=== PATIENT | female | born 1940 | race Caucasian/White ===

== ENCOUNTER 2016-11-05 00:50 | Observation (INO) ==
[2016-11-05] MEDS ORDERED: *HR* HYDROcodone/Acet 5/325 mg TABLET PO ONE (01:53)
[2016-11-05 02:20] LABS: Basophils % 0.5 %; Eosinophils # 0.2 K/mcL (0.0-0.6); Eosinophils % 2.4 %; Hematocrit 37.4 % (35.3-44.9); Hemoglobin 12.4 g/dL (11.5-15.4); Immature Granulocytes % 0.4 % (0-4); Immature Platelets 2.4 % (1.1-6.1); Lymphocytes # 0.8 K/mcL (0.6-4.6); Lymphocytes % 9.4 %; Mean Corpuscular HGB Conc 33.2 g/dL (31.6-35.5); Mean Corpuscular Hemoglobin 31.6 pg (28.0-33.3); Mean Corpuscular Volume 95.2 fL (83.0-100.0); Mean Platelet Volume 9.2 fL (9.4-12.4); Monocytes # 0.7 K/mcL (0.0-1.3); Neutrophils # 6.6 K/mcL (1.6-8.9); Platelet Count 252 K/mcL (140-400); Red Blood Count 3.93 M/mcL (3.82-4.97); Red Cell Distribution Width 12.9 % (11.5-14.5); Segmented Neutrophils % 79.3 %
[2016-11-05 02:29] LABS: INR 4.9; Prothrombin Time 55.6 Seconds (9.4-12.1)
[2016-11-05 02:33] LABS: BUN/Creatinine Ratio 23 (6-26); Blood Urea Nitrogen 18 mg/dL (7-20); Calcium 9.5 mg/dL (8.6-10.8); Carbon Dioxide 27 mEq/L (19-29); Chloride 106 mEq/L (98-109); Glucose 100 mg/dL (70-99); Osmolality,Calculated 294 (280-300); Potassium 3.8 mEq/L (3.5-4.5); Sodium 141 mEq/L (136-145); eGFR For African Americans > 60 (> 60); eGFR For Non-African Americans > 60 (> 60)
--- NOTE | 2016-11-05 03:22 | Emergency Department Note ---
Disposition Clinical Impression: Pain in right leg, Intractable pain, Unable to ambulate Disposition: Admitted As Inpatient Condition: Good Time of Disposition: 04:53 General Adult HPI - General Chief complaint: ED Extremity Problem,Nontraumatic Stated complaint: R leg pain Time Seen by Provider: 11/05/16 01:32 Source: patient, EMS Limitations: no limitations Nursing Notes Reviewed: Yes Vital Signs Reviewed: Yes - History of Present Illness HPI Narrative: 76-year-old female presents to the ED via EMS with complained of right leg pain. She has had similar history in the past but denies severe. Like started burden approximately 2 weeks ago and has progressively worsen. Denies any recent fall or injury. It is to the point where now she cannot bear to stand or walk. She is unable to move around in the house. Describes it similar to a cramping sensation. Describes the pain from the right hip radiating down the right leg. She does take care of her at home who has cancer at this time. She denies any difficulty with urination, incontinence of bowel or bladder. She is not taken anything for pain at this time. She does have a history of lupus and was recently seen and evaluated by her primary care physician 2 days ago. Labs are drawn at that time and was told that her INR is elevated. She has a history of blood clots in the left leg. On evaluation patient's right leg appears to be slightly shortened but her right knee remains flex. There is some pain along the right hip. No lumbar pain. Sensation is equal bilaterally. Equal pulses bilaterally. Will check your electrolytes as well as her INR. Will reevaluate, disposition pending workup. Pain Scale: 10 - Related Data Home Medications Medication Instructions Recorded Confirmed Ascorbic Acid [Vitamin C] 500 mg PO DAILY 01/26/15 10/18/15 Calcium Carbonate [Tums] 500 mg PO DAILY 01/26/15 10/18/15 Docusate [Colace] 200 mg PO DAILY 01/26/15 10/18/15 Folic Acid 0.8 mg PO DAILY 01/26/15 10/18/15 Gabapentin [Neurontin] 600 tab PO TID 01/26/15 10/18/15 Vitamin B Complex [B Complex] 1 tab PO DAILY 01/26/15 10/18/15 Vitamin D3/Folic Acid [Ortho D 1 tab PO DAILY 01/26/15 10/18/15 3,775 Unit-1 mg Cap] Vitamin E (Dl,Tocopheryl Acet) 100 unit PO DAILY 01/26/15 10/18/15 [Vitamin E] Calcium Carbonate [Calcium] 600 mg PO DAILY 10/18/15 10/18/15 Duloxetine HCl [Cymbalta] 60 mg PO DAILY 10/18/15 10/18/15 Pantoprazole Sodium [Protonix] 40 mg PO DAILY 10/18/15 10/18/15 Potassium Chloride 30 meq PO DAILY 10/18/15 10/18/15 Trospium Chloride 20 mg PO HS 10/18/15 10/18/15 Previous Rx's Medication Instructions Recorded Coumadin 5 mg PO ONCE #0 10/19/15 Tramadol HCl [Ultram] 50 mg PO QID PRN #12 tab 04/25/16 HYDROcodone/Acet 5/325 mg [B[place] 1 tab PO Q6H PRN #15 tab 08/16/16 5-325 mg] Allergies Allergy/AdvReac Type Severity Reaction Status Date / Time acetaminophen Allergy Hives Verified 11/05/16 00:57 [From Darvocet-N] cefazolin [From Ancef] Allergy Hives Verified 11/05/16 00:57 codeine Allergy Hives Verified 11/05/16 00:57 Erythromycin Base Allergy Hives Verified 11/05/16 00:57 latex Allergy Rash Verified 11/05/16 00:57 Oxycodone [From Percocet] Allergy Hives Verified 11/05/16 00:57 Penicillins Allergy Hives Verified 11/05/16 00:57 Procaine Allergy Dizziness Verified 11/05/16 00:57 propoxyphene Allergy Hives Verified 11/05/16 00:57 [From Darvocet-N] Sulfa (Sulfonamide Allergy Hives Verified 11/05/16 00:57 Antibiotics) theophylline [From Emiliano-Dur] Allergy Hives Verified 11/05/16 00:57 caffeine AdvReac Hallucinati Verified 11/05/16 00:57 ng Hydromorphone [From Dilaudid] AdvReac Itching Verified 11/05/16 00:57 lactose AdvReac Abdominal Verified 11/05/16 00:57 Pain tramadol AdvReac Rash Verified 11/05/16 00:57 All systems ED: reviewed and negative except as stated. Review of Systems: As Per HPI Constitutional: Denies: fever, chills Cardiovascular: Denies: chest pain Respiratory: Denies: cough, dyspnea Gastrointestinal: Denies: abdominal pain, nausea, vomiting Genitourinary: Denies: urgency, dysuria Musculoskeletal: Reports: back pain, arthralgia, myalgia. Denies: neck pain Integumentary: Denies: rash, abrasion Neurological: Denies: headache Past Medical History - Past Medical History Attestation: Yes The following information was validated with the patient. Source: patient Medical history: Reports: arthritis, cancer, COPD, CVA, DVT, fibromyalgia, osteoporosis, thyroid disease, other Surgical history: Reports: non-contributory, hysterectomy Psychiatric history: Reports: anxiety, depression [employer] history: Reports: non-contributory - Social History Smoking Status: Never smoker Smokeless Tobacco Status: No Alcohol use: Reports: none Drug use: Reports: none Physical Exam - General Limitations: no limitations General appearance: alert, in distress (Appears uncomfortable) - Head Head exam: atraumatic, normocephalic, normal inspection - Eye Eye exam: Present: normal appearance, PERRL, EOMI - ENT ENT exam: normal exam, normal oropharynx - Neck Neck exam: Present: normal inspection - Chest Chest inspection: Present: normal inspection, symmetric chest wall rise - Respiratory Respiratory exam: Present: normal lung sounds bilaterally. Absent: respiratory distress, wheezes, stridor - Cardiovascular Cardiovascular exam: Present: regular rate, normal rhythm, normal heart sounds - Abdominal Exam Abdominal exam: Present: soft, Non-Tender, normal bowel sounds. Absent: tenderness, distention, guarding, rebound, rigidity - Expanded Lower Extremity Exam Hip/Pelvis exam: Present: normal inspection, full ROM, tenderness, internal rotation, shortening, pelvis stable. Absent: swelling, ecchymosis, deformity Upper leg exam: Present: normal inspection, full ROM, tenderness. Absent: swelling, ecchymosis, deformity Knee exam: Present: normal inspection, full ROM, tenderness, knee extension intact. Absent: swelling, ecchymosis, deformity Lower leg exam: Present: normal inspection, full ROM Ankle exam: Present: normal inspection, full ROM Foot/toe exam: Present: normal inspection, full ROM Neurovascular/Tendon exam: Present: normal capillary refill, normal fine/light touch. Absent: pulse deficit, motor deficit, sensory deficit, tendon deficit, extremity cold to touch, foot drop Gait: unable to bear weight - Back Exam Back exam: Present: normal inspection, full ROM, sciatic notch tenderness (R). Absent: tenderness - Neurological Exam Neurological exam: Present: alert, oriented X3 - Skin Skin exam: Present: warm, dry, intact, normal color Course - Reevaluation(s) Reevaluation #1: Patient is describing sciatic leg pain. Denies any red flags or recent injury. On my evaluation her right leg seemed slightly shortened, certain for possible fracture of the head. She denies any recent injury or trauma. X-ray was normal. Brooten for pain with minimal relief. States she typically gets Dilaudid however has this listed as a allergy, typically will also get Benadryl prior to it. Patient refuses to ambulate and is unable to stand. She will likely need admission for pain control. Patients in agreement with this plan. Impression is intractable pain likely from sciatica. - Consultations Consultation #1: Spoke with on-call hospitalist courtney Mijares to admit for intractable pain likely sciatica. May require MRI but not emergently. No further orders at this time Vital Signs Temperature 97.7 F 11/05/16 00:57 Pulse Rate 78 11/05/16 00:57 Respiratory Rate 20 11/05/16 00:57 Blood Pressure 154/82 11/05/16 00:57 O2 Sat by Pulse Oximetry 96 11/05/16 00:57 Temperature 97.7 F 11/05/16 00:57 Pulse Rate 79 11/05/16 04:08 Respiratory Rate 18 11/05/16 04:08 Blood Pressure 144/75 11/05/16 04:08 O2 Sat by Pulse Oximetry 96 11/05/16 04:08 Oxygen Delivery Oxygen Delivery Room Air Medical Decision Making - Medical Records Medical records reviewed: Yes I reviewed the patient's medical records. - Lab Data Lab results reviewed: Yes I reviewed the patient's lab results. Result diagrams: 11/05/16 02:14 11/05/16 02:14 Lab Results 11/05/16 11/05/16 11/05/16 Range/Units 02:14 02:14 02:14 WBC 8.3 (4.3-11.1) K/mcL RBC 3.93 (3.82-4.97) M/mcL Hgb 12.4 (11.5-15.4) g/dL Hct 37.4 (35.3-44.9) % MCV 95.2 (83.0-100.0) fL MCH 31.6 (28.0-33.3) pg MCHC 33.2 (31.6-35.5) g/dL RDW 12.9 (11.5-14.5) % Plt Count 252 (140-400) K/mcL MPV 9.2 L (9.4-12.4) fL Immature Gran % 0.4 (0-4) % Seg Neutrophils % 79.3 % Lymphocytes % 9.4 % Monocytes % 8.0 % Eosinophils % 2.4 % Basophils % 0.5 % Neutrophils # 6.6 (1.6-8.9) K/mcL Lymphocytes # 0.8 (0.6-4.6) K/mcL Monocytes # 0.7 (0.0-1.3) K/mcL Eosinophils # 0.2 (0.0-0.6) K/mcL Basophils # 0.0 (0.0-0.2) K/mcL Immature Plt Fraction 2.4 (1.1-6.1) % PT 55.6 H* (9.4-12.1) Seconds INR 4.9 H* Sodium 141 (136-145) mEq/L Potassium 3.8 (3.5-4.5) mEq/L Chloride 106 (98-109) mEq/L Carbon Dioxide 27 (19-29) mEq/L BUN 18 (7-20) mg/dL Creatinine 0.79 (0.57-1.11) mg/dL Est GFR ( Amer) > 60 (> 60) Est GFR (Non-Af Amer) > 60 (> 60) BUN/Creatinine Ratio 23 (6-26) Glucose 100 H (70-99) mg/dL Calculated Osmolality 294 (280-300) Calcium 9.5 (8.6-10.8) mg/dL - Radiology Data Radiology results reviewed: Yes I reviewed the patient's radiology results. Pelvis X-Ray 11/05/16 01:42 IMPRESSION: No definite fracture. D/ / Jhonathan Beverly MD / Jhonathan Beverly MD Interpreting Provider: Jhonathan Beverly MD Attestation Statement - Attestation Attestation: I, Vernon Cho MD, personally evaluated this patient and discussed their management with the resident physician. I reviewed the resident's note and agree with the documented findings, medical decision making, and plan of care. 76-year-old female presents to the emergency department with a complaint of severe right leg pain. She has had similar problems intermittently in the past but not as severe. She denies any fall or injury. She states that the leg started hurting about 2 weeks ago and has gotten progressively worse. Over the past one day patient states the pain has gotten to the point that she is unable to stand or bear weight or walk. She is unable to get around her home. She lives at home with her and takes care of her who has cancer. No difficulty with urination or bowel movements. No numbness or tingling. She does complains of severe pain from the right SI joint area and the posterior right hip radiating down the right leg. On examination patient is a well-developed well-nourished elderly female in no acute distress but does appear to be in severe discomfort. She is alert and oriented 3. There is no cyanosis or diaphoresis. Breath sounds are clear and equal bilaterally. Heart regular. Abdomen soft and nontender with normal bowel sounds. There is tenderness to palpation over the right lower lumbar and sacroiliac region. Patient has severe pain in the right leg with any movement of the leg. Sensation is intact distally. She is able to dorsiflex and plantarflex the toes and foot. Labs reviewed. Pelvis x-ray shows no fracture. Patient was unable to stand or ambulate in the emergency department. The hospitalist, Dr. Verma, was consulted and accepted admission of the patient.
[2016-11-05] MEDS ORDERED: *HR* HYDROmorphone (PF) 1 MG/ML SYRINGE IVP ONE (04:44)
--- NOTE | 2016-11-05 08:37 | Internal Med History&Physical ---
Date of Encounter: 11/06/16 Time of Encounter: 08:34 Assessment and Plan (1) Intractable pain Current visit: Yes Status: Acute c/o right hip pain radiating down to the right leg, unable to lift right leg. no pain in the left leg, h/o spine surgery in the past denies fall or trauma. reports had some tingling before but no more, sensation is intact. received IV dilaudid at ED> unclear cause, given h/o spine surgery and severe pain, will order MRI to evaluate further. pelvic x ray with no fractures possible lumbosacral radiculopathy, however not much sensory symptoms will continue IV and oral pain meds as needed. physical therapy. DVT prophylaxis. (2) H/O: CVA (cerebrovascular accident) Current visit: Yes Status: Chronic no residual weakness. continue asa. (3) DVT (deep venous thrombosis) Current visit: No Status: Chronic reports recurrent clots in the past and also has h/o ?lupus for which she sees DR. Cortes INR supratheraeutic, hold today, may need to start at a lower dose. Qualifiers: DVT location: lower extremity Affected thrombotic vein of extremity: unspecified vein of extremity Chronicity: chronic Laterality: left Qualified Code(s): I82.502 - Chronic embolism and thrombosis of unspecified deep veins of left lower extremity Internal Medicine - H&P: HPI Chief complaint: right hip and leg pain Admitted From: Home Plans for Post Hospital Care: Home History of present illness: Ms. Kimball is a 76 year old female with past medical history of CVA, COPD, fibromyalgia, recurrent DVT status post back surgery presented with 2 day history of severe right-sided hip pain. She reports that she has been having this pain for a while but for the last 2 weeks has progressively worsen. Denies any recent fall or injury. It is to the point where now she cannot bear to stand or walk. She is unable to move around in the house. Describes the pain from the right hip radiating down the right leg. She does take care of her at home who has cancer at this time. She denies any difficulty with urination, incontinence of bowel or bladder. She is not taken anything for pain at this time. She does have a history of lupus and was recently seen and evaluated by her primary care physician. She has a history of blood clots x4 and is on life long coumadin, her INR noted to be elevated at 4.9, no bleeding complains. Past Med Surg Social Fam HX - Past Medical History Medical history: arthritis, cancer, COPD, CVA, DVT, fibromyalgia, osteoporosis, thyroid disease, other Psychiatric history: anxiety, depression - Past Surgical History Surgical History: non-contributory, hysterectomy - Social History Smoking Status: Never smoker Smokeless Tobacco Status: No Alcohol use: none Drug use: none - Family History Father Living Status: Hx Family Cancer: Yes (prostate) Mother Family Member Ethnicity: Non- Living Status: Hx Family Cardiac Disorders: Yes Hx Family Respiratory Disorders: Yes Hx Family Cancer: Yes (rectal) Hx Family GI Disorders: No Hx Family Endocrine Disorder: No Hx Family Neuromuscular Disorders: No Hx Family Neurologic Disorders: No Hx Family HEENT Disorders: No Hx Family Autoimmune Disorders: No Brother Hx Family Cardiac Disorders: Yes (ND, Heart stents) Hx Family Respiratory Disorders: No Hx Family Cancer: Yes (colon) Hx Family GI Disorders: No Hx Family Endocrine Disorder: No Hx Family Neuromuscular Disorders: No Hx Family Neurologic Disorders: No Hx Family HEENT Disorders: No Hx Family Autoimmune Disorders: No Internal Medicine - H&P: Meds Ascorbic Acid [Vitamin C] 500 mg PO DAILY 01/26/15 [History] Calcium Carbonate [Tums] 500 mg PO DAILY 01/26/15 [History] Docusate [Colace] 200 mg PO DAILY 01/26/15 [History] Folic Acid 0.8 mg PO DAILY 01/26/15 [History] Gabapentin [Neurontin] 600 tab PO TID 01/26/15 [History] Vitamin B Complex [B Complex] 1 tab PO DAILY 01/26/15 [History] Vitamin D3/Folic Acid [Ortho D 3,775 Unit-1 mg Cap] 1 tab PO DAILY 01/26/15 [ History] Vitamin E (Dl,Tocopheryl Acet) [Vitamin E] 100 unit PO DAILY 01/26/15 [History] Calcium Carbonate [Calcium] 600 mg PO DAILY 10/18/15 [History] Duloxetine HCl [Cymbalta] 60 mg PO DAILY 10/18/15 [History] Pantoprazole Sodium [Protonix] 40 mg PO DAILY 10/18/15 [History] Potassium Chloride 30 meq PO DAILY 10/18/15 [History] Trospium Chloride 20 mg PO HS 10/18/15 [History] Tramadol HCl [Ultram] 50 mg PO QID PRN #12 tab 04/25/16 [Rx] HYDROcodone/Acet 5/325 mg [[place] 5-325 mg] 1 tab PO Q6H PRN #15 tab 08/16/16 [Rx ] Metoprolol [Lopressor] 25 mg PO BID 11/05/16 [History] Nystatin POWDER [Nystop] 1 appl TP BID 11/05/16 [History] Warfarin [Coumadin] 5 mg PO AD 11/05/16 [History] hydrOXYzine HCl [Hydroxyzine HCl] 25 mg PO BID 11/05/16 [History] Allergies acetaminophen [From Darvocet-N] Allergy (Verified 11/05/16 00:57) Hives cefazolin [From Ancef] Allergy (Verified 11/05/16 00:57) Hives codeine Allergy (Verified 11/05/16 00:57) Hives Erythromycin Base Allergy (Verified 11/05/16 00:57) Hives latex Allergy (Verified 11/05/16 00:57) Rash Oxycodone [From Percocet] Allergy (Verified 11/05/16 00:57) Hives Penicillins Allergy (Verified 11/05/16 00:57) Hives Procaine Allergy (Verified 11/05/16 00:57) Dizziness propoxyphene [From Darvocet-N] Allergy (Verified 11/05/16 00:57) Hives Sulfa (Sulfonamide Antibiotics) Allergy (Verified 11/05/16 00:57) Hives theophylline [From Emiliano-Dur] Allergy (Verified 11/05/16 00:57) Hives caffeine Adverse Reaction (Verified 11/05/16 00:57) Hallucinating Hydromorphone [From Dilaudid] Adverse Reaction (Verified 11/05/16 00:57) Itching lactose Adverse Reaction (Verified 11/05/16 00:57) Abdominal Pain tramadol Adverse Reaction (Verified 11/05/16 00:57) Rash All Systems PM: A 10-system review of systems was performed and is negative for pertinent findings except as documented above in the HPI. - Constitutional Constitutional: as per HPI - EENT Eyes: as per HPI Ears: as per HPI Nose, mouth and throat: as per HPI - Breasts Breasts: as per HPI - Cardiovascular Cardiovascular ROS IM: as per HPI - Respiratory Respiratory: as per HPI - Gastrointestinal Gastrointestinal: as per HPI - Genitourinary Genitourinary: as per HPI Menstruation: as per HPI - Musculoskeletal Musculoskeletal ROS IM: as per HPI, limited range of motion - Integumentary Integumentary IM: as per HPI - Constitutional Vitals: Temp Pulse Resp BP Pulse Ox 97.5 F L 71 17 118/70 93 11/05/16 07:11 11/05/16 07:11 11/05/16 07:11 11/05/16 07:11 11/05/16 07:11 General appearance: Present: mild distress, A&O X 3 Exam: neck- supple hchest- b/l clear, no added sounds CVS-s1 and s2, no m/r/g abd-soft, non tender, bs are present. ext- tender right hip and thigh, unable to lift her rt. ext, sensation intact. Internal Med - H&P Results - Labs CBC & Chem 7: 11/06/16 04:06 11/06/16 04:06
[2016-11-05] MEDS ORDERED: Naloxone 0.4 MG/ML INJ IVP PRN (08:53)
[2016-11-05] MEDS: Folic Acid 1 MG TABLET PO SCH (09:29)
[2016-11-05] MEDS: Ascorbic Acid 500 MG TABLET PO SCH (09:29)
[2016-11-05] MEDS: Gabapentin 300 MG CAPSULE PO SCH ×3 (09:29→20:46)
[2016-11-05] MEDS: *HR* OxyCODONE Immed Rel 5 MG TABLET PO PRN ×2 (09:30→17:29)
[2016-11-05] MEDS: *HR* HYDROmorphone (PF) 1 MG/ML SYRINGE IVP PRN (11:01)
[2016-11-05] MEDS ORDERED: Warfarin perPT PO PRN (18:00)
[2016-11-06] MEDS: *HR* HYDROmorphone (PF) 1 MG/ML SYRINGE IVP PRN ×3 (04:11→23:29)
[2016-11-06 04:28] LABS: BUN/Creatinine Ratio 16 (6-26); Blood Urea Nitrogen 12 mg/dL (7-20); Calcium 8.5 mg/dL (8.6-10.8); Carbon Dioxide 29 mEq/L (19-29); Chloride 104 mEq/L (98-109); Glucose 95 mg/dL (70-99); INR 4.7; Osmolality,Calculated 286 (280-300); Prothrombin Time 53.4 Seconds (9.4-12.1); Sodium 138 mEq/L (136-145); eGFR For African Americans > 60 (> 60); eGFR For Non-African Americans > 60 (> 60)
[2016-11-06 04:48] LABS: Basophils % 0.4 %; Eosinophils # 0.2 K/mcL (0.0-0.6); Eosinophils % 3.1 %; Hematocrit 34.8 % (35.3-44.9); Hemoglobin 11.4 g/dL (11.5-15.4); Immature Granulocytes % 0.4 % (0-4); Lymphocytes % 19.8 %; Mean Corpuscular HGB Conc 32.8 g/dL (31.6-35.5); Mean Corpuscular Hemoglobin 31.1 pg (28.0-33.3); Mean Corpuscular Volume 94.8 fL (83.0-100.0); Mean Platelet Volume 9.7 fL (9.4-12.4); Monocytes # 0.5 K/mcL (0.0-1.3); Monocytes % 8.9 %; Neutrophils # 3.5 K/mcL (1.6-8.9); Platelet Count 223 K/mcL (140-400); Red Blood Count 3.67 M/mcL (3.82-4.97); Red Cell Distribution Width 13.1 % (11.5-14.5); Segmented Neutrophils % 67.4 %
[2016-11-06] MEDS: Folic Acid 1 MG TABLET PO SCH (07:23)
[2016-11-06] MEDS: Ascorbic Acid 500 MG TABLET PO SCH (07:24)
[2016-11-06] MEDS: Gabapentin 300 MG CAPSULE PO SCH ×3 (07:24→20:24)
[2016-11-06] MEDS: *HR* OxyCODONE Immed Rel 5 MG TABLET PO PRN ×2 (11:50→20:24)
--- NOTE | 2016-11-06 12:31 | Orthopedic Consult Note ---
Date of Encounter: 11/07/16 Time of Encounter: 12:29 Assessment and Plan (1) Pain in right leg Current Visit: Yes Status: Acute Right Hip XRAY IMPRESSION: No definite fracture. MR/MR hip RT wo con IMPRESSION: 1. Severe right hip osteoarthritis with synovitis. 2. No acute fracture. No acute abnormality in the right hip or pelvis. History of lumbar back surgery (2) Arthritis pain, hip Current Visit: Yes Status: Acute Right Hip XRAY IMPRESSION: No definite fracture. MR/MR hip RT wo con IMPRESSION: 1. Severe right hip osteoarthritis with synovitis. 2. No acute fracture. No acute abnormality in the right hip or pelvis. History of lumbar back surgery 2010. Overall, states her Right hip pain started approximately 2-3 months ago, she has seen PCP for this. Pain has recently worsened over the last two weeks, progressing worsening. She's having difficulty with ambulation currently. Patient was able to participate in PT. She would benefit from a Right THR, we discussed following up in outpatient clinic to set this up. We will start Tylenol and dose steroids for symptomatic control. Because of her history of DVT - will get doppler to r/o blood clot. Unable to take NSAIDS secondary to anti-coagulation. She has no contributing back pain or obvious weakness. No loss of bowel function or urinary function. Will plan to f/up outpatient in clinic to discuss elective THR versus hip injection. History of Present Illness Chief complaint: Right Hip pain HPI: Ms. Kimball is a 76 year old female with past medical history of CVA, COPD, fibromyalgia, recurrent DVT status post back surgery presented with 2 day history of severe right-sided hip pain. She reports that she has been having this pain for a while but for the last 2 weeks has progressively worsen. She admits to a fall approx 2-3 months ago and has seen her PCP since then. She has difficulty with ambulation. She is unable to move around in the house. Describes the pain from the right hip radiating down the right leg. Worsened with movement. Previous back surgery in 2010 - no complications or re-injuries to date. She denies N/T into leg. She does admit to intermittent sharp pain along groin and inner thigh. Sensation intact. She does take care of her at home who has cancer at this time. She denies any difficulty with urination, incontinence of bowel or bladder. She is not taken anything for pain at this time. Unable to take NSAIDS secondary to anticoagulation. She does have a history of lupus and was recently seen and evaluated by her primary care physician. She has a history of blood clots x4 and is on life long coumadin, her INR noted to be elevated at 4.9, no bleeding complains. Past Med Surg Social Fam HX - Past Medical History Medical history: arthritis, cancer, COPD, CVA, DVT, fibromyalgia, osteoporosis, thyroid disease, other Psychiatric history: anxiety, depression - Past Surgical History Surgical History: non-contributory, hysterectomy - Social History Smoking Status: Never smoker Smokeless Tobacco Status: No Alcohol use: none Drug use: none - Family History Father Living Status: Hx Family Cancer: Yes (prostate) Mother Family Member Ethnicity: Non- Living Status: Hx Family Cardiac Disorders: Yes Hx Family Respiratory Disorders: Yes Hx Family Cancer: Yes (rectal) Hx Family GI Disorders: No Hx Family Endocrine Disorder: No Hx Family Neuromuscular Disorders: No Hx Family Neurologic Disorders: No Hx Family HEENT Disorders: No Hx Family Autoimmune Disorders: No Brother Hx Family Cardiac Disorders: Yes ([place], Heart stents) Hx Family Respiratory Disorders: No Hx Family Cancer: Yes (colon) Hx Family GI Disorders: No Hx Family Endocrine Disorder: No Hx Family Neuromuscular Disorders: No Hx Family Neurologic Disorders: No Hx Family HEENT Disorders: No Hx Family Autoimmune Disorders: No Medications and Allergies Ascorbic Acid [Vitamin C] 500 mg PO DAILY 01/26/15 [History] Calcium Carbonate [Tums] 500 mg PO DAILY 01/26/15 [History] Docusate [Colace] 200 mg PO DAILY 01/26/15 [History] Folic Acid 0.8 mg PO DAILY 01/26/15 [History] Gabapentin [Neurontin] 600 tab PO TID 01/26/15 [History] Vitamin B Complex [B Complex] 1 tab PO DAILY 01/26/15 [History] Vitamin D3/Folic Acid [Ortho D 3,775 Unit-1 mg Cap] 1 tab PO DAILY 01/26/15 [ History] Vitamin E (Dl,Tocopheryl Acet) [Vitamin E] 100 unit PO DAILY 01/26/15 [History] Calcium Carbonate [Calcium] 600 mg PO DAILY 10/18/15 [History] Duloxetine HCl [Cymbalta] 60 mg PO DAILY 10/18/15 [History] Pantoprazole Sodium [Protonix] 40 mg PO DAILY 10/18/15 [History] Potassium Chloride 30 meq PO DAILY 10/18/15 [History] Trospium Chloride 20 mg PO HS 10/18/15 [History] Tramadol HCl [Ultram] 50 mg PO QID PRN #12 tab 04/25/16 [Rx] HYDROcodone/Acet 5/325 mg [[place] 5-325 mg] 1 tab PO Q6H PRN #15 tab 08/16/16 [Rx ] Metoprolol [Lopressor] 25 mg PO BID 11/05/16 [History] Nystatin POWDER [Nystop] 1 appl TP BID 11/05/16 [History] Warfarin [Coumadin] 5 mg PO AD 11/05/16 [History] hydrOXYzine HCl [Hydroxyzine HCl] 25 mg PO BID 11/05/16 [History] Allergies acetaminophen [From Darvocet-N] Allergy (Verified 11/05/16 00:57) Hives cefazolin [From Ancef] Allergy (Verified 11/05/16 00:57) Hives codeine Allergy (Verified 11/05/16 00:57) Hives Erythromycin Base Allergy (Verified 11/05/16 00:57) Hives latex Allergy (Verified 11/05/16 00:57) Rash Oxycodone [From Percocet] Allergy (Verified 11/05/16 00:57) Hives Penicillins Allergy (Verified 11/05/16 00:57) Hives Procaine Allergy (Verified 11/05/16 00:57) Dizziness propoxyphene [From Darvocet-N] Allergy (Verified 11/05/16 00:57) Hives Sulfa (Sulfonamide Antibiotics) Allergy (Verified 11/05/16 00:57) Hives theophylline [From Emiliano-Dur] Allergy (Verified 11/05/16 00:57) Hives caffeine Adverse Reaction (Verified 11/05/16 00:57) Hallucinating Hydromorphone [From Dilaudid] Adverse Reaction (Verified 11/05/16 00:57) Itching lactose Adverse Reaction (Verified 11/05/16 00:57) Abdominal Pain tramadol Adverse Reaction (Verified 11/05/16 00:57) Rash All Systems Reviewed: A 10-system review of systems was performed and is negative for pertinent findings except as documented above in the HPI. - Constitutional Constitutional: as per HPI - Cardiovascular Cardiovascular: as per HPI - Respiratory Respiratory: as per HPI Physical Exam - Constitutional Vitals: Temp Pulse Resp BP Pulse Ox 98.1 F 102 17 146/74 96 11/06/16 11:56 11/06/16 11:56 11/06/16 11:56 11/06/16 11:56 11/06/16 11:56 - Hip right Gait: antalgic Tenderness with palpation: anterior, lateral, greater trochanter ROM: extension: abnormal ROM: flexion: abnormal ROM: abduction: abnormal ROM: adduction: abnormal ROM: internal rotation: abnormal ROM: external rotation: abnormal Crepitus with motion: No Strength: extension: Normal Strength: flexion: Normal Results - Labs Result Diagrams: 11/07/16 04:00 11/07/16 04:00 Labs: Abnormal lab results RBC 3.67 M/mcL (3.82-4.97) L 11/06/16 04:06 Hgb 11.4 g/dL (11.5-15.4) L 11/06/16 04:06 Hct 34.8 % (35.3-44.9) L 11/06/16 04:06 PT 53.4 Seconds (9.4-12.1) H* 11/06/16 04:06 INR 4.7 H* 11/06/16 04:06 Calcium 8.5 mg/dL (8.6-10.8) L 11/06/16 04:06 H & H 11/06/16 Range/Units 04:06 Hgb 11.4 L (11.5-15.4) g/dL Hct 34.8 L (35.3-44.9) % All other labs normal. - Diagnostic results Hip x-ray: report reviewed, image reviewed Consult Discharge Plan - Plan Referrals: Mary Ortiz CNP [Primary Care Provider] -
--- NOTE | 2016-11-06 15:18 | Internal Med Progress Note ---
Date of Encounter: 11/06/16 Time of Encounter: 10:15 - Assessment and plan (1) Intractable pain Current Visit: Yes Status: Acute Assessment and plan: Intractable pain in the right hip region. No acute fracture. Pain control with IV narcotic medications as needed. Moderate risk for complications. (2) Osteoarthritis of right hip Current Visit: Yes Status: Chronic Assessment and plan: Patient with severe osteoarthritis of the right hip per MRI along with synovitis. We will consult orthopedics for recommendations Qualifiers: Osteoarthritis type: unspecified Qualified Code(s): M16.11 - Unilateral primary osteoarthritis, right hip (3) DVT (deep venous thrombosis) Current Visit: No Status: Chronic Assessment and plan: He should not with history of deep vein thrombosis on lifelong anticoagulation with Coumadin. INR remains supratherapeutic. If patient does require surgery, we will correct it with fresh frozen plasma, Prior to surgery. Qualifiers: DVT location: lower extremity Affected thrombotic vein of extremity: unspecified vein of extremity Chronicity: chronic Laterality: left Qualified Code(s): I82.502 - Chronic embolism and thrombosis of unspecified deep veins of left lower extremity - Subjective Interval history: Patient continues to have intractable pain in her right hip region along with shooting pain down her right leg. Denies any focal weakness or numbness in her l right ower extremity. No bowel or bladder incontinence. - Constitutional Vitals: Temp Pulse Resp BP Pulse Ox 98.1 F 102 17 146/74 96 11/06/16 11:56 11/06/16 11:56 11/06/16 11:56 11/06/16 11:56 11/06/16 11:56 General appearance: Present: cooperative, mild distress, A&O X 3, answers questions appropriately - Eye Eye exam: Present: EOMI, PERRL, conjuntiva pink, sclera anicteric - Neck Neck exam general surgery: Present: supple, trachea midline. Absent: lymphadenopathy - Respiratory Respiratory exam: Present: CTAB. Absent: accessory muscle use, rales, rhonchi, wheezes - Cardiovascular Cardiovascular exam: Present: RRR, +S1, +S2. Absent: diastolic murmur, gallop, rubs, systolic murmur - GI/Abdominal GI/Abdominal exam: Present: normal bowel sounds, soft, no peritoneal signs. Absent: distended, tenderness - Extremities Exam Extremities exam: Present: tenderness, warm, radial pulses palpable and symetrical. Absent: calf tenderness, cyanotic, pedal edema Additional comments: Tenderness in the right hip region - Neurological Exam Neurological exam: Present: alert, oriented X3, no focal deficits, strengths equal and symetr throughout. Absent: facial droop - Skin Skin exam: Present: dry, intact Internal Medicine: Result - Labs CBC & Chem 7: 11/06/16 04:06 11/06/16 04:06 Labs: Short CBC 11/06/16 Range/Units 04:06 WBC 5.1 (4.3-11.1) K/mcL Hgb 11.4 L (11.5-15.4) g/dL Hct 34.8 L (35.3-44.9) % Plt Count 223 (140-400) K/mcL Neutrophils # 3.5 (1.6-8.9) K/mcL BMP 11/06/16 04:06 Sodium 138 Potassium 4.0 Chloride 104 Carbon Dioxide 29 BUN 12 Creatinine 0.75 Glucose 95 Calcium 8.5 L - ABG Interpretation ABG results: PT/INR, D-dimer PT 53.4 Seconds (9.4-12.1) H* 11/06/16 04:06 - Impressions Impressions Hip MRI 11/05/16 09:01 IMPRESSION: 1. Severe right hip osteoarthritis with synovitis. 2. No acute fracture. No acute abnormality in the right hip or pelvis. D/ / 11/05/2016 12:44:48 Thang Nassar MD / dinora Interpreting Provider: Thang Nassar MD Consult Discharge Plan - Plan Referrals: Mary Ortiz, STORAGE CONSULTANT [Primary Care Provider] -
[2016-11-06] MEDS ORDERED: *HR* Warfarin 4 MG TABLET PO SCH (18:00)
[2016-11-06] MEDS ORDERED: Acetaminophen 325 MG TABLET PO PRN (18:13)
--- NOTE | 2016-11-06 22:36 | Venous Imaging Report ---
LE Venous Duplex Patient Name:Stacy Kimball Order Number:[id number] Procedure Date:11/06/2016 Date:2Age:76 yrs Gender:Female Location:[facility] Room #: [id number] Batch Mixer:Kierra Martinez RDCS Referring MD:Ludmila Osei PA-C executive housekeeper:Mary Ortiz, RETREAD SUPERVISOR Reading MD:Bravo Vaughn MD , FACS Primary Indications:Hx DVT Secondary Indications: Risk Factors Yes/No Hx of DVT Yes Anticoagulants Yes [place] Filter Yes Impressions: Right lower extremity: normal superficial and deep exam. Recommendations: Preliminary given to pt RN. Findings Venous Duplex Results: Right: Venous imaging of the lower extremity reveals full patency and normal vessel compressibility of the right distal iliac, right common femoral, right superficial femoral, right popliteal, right posterior tibial, right peroneal, right great saphenous and right lesser saphenous. Doppler signals in the evaluated veins were normal. Lower Extremity Venous Duplex Side Vein Compress Spontaneous Flow Augment Diameter (cm) Depth (cm) Right Distal Iliac Normal Yes Phasic Yes Right Common Femoral Normal Yes Phasic Yes Right Superficial Femoral Normal Yes Phasic Yes Right Popliteal Normal Yes Phasic Yes Right Posterior Tibial Normal Yes Phasic Yes Right Peroneal Normal Yes Phasic Yes Right Great Saphenous Normal Yes Phasic Yes Right Lesser Saphenous Normal Yes Phasic Yes Updated by Bravo Vaughn MD, FACS on 11/06/2016 10:29:13 PM Bravo Vaughn MD electronically signed on 11/06/2016 10:29:29 PM with status of Final
[2016-11-07] MEDS: *HR* OxyCODONE Immed Rel 5 MG TABLET PO PRN (03:46)
[2016-11-07 04:43] LABS: Basophils % 0.7 %; Eosinophils # 0.2 K/mcL (0.0-0.6); Eosinophils % 4.7 %; Hematocrit 32.1 % (35.3-44.9); Hemoglobin 10.6 g/dL (11.5-15.4); Immature Granulocytes % 0.5 % (0-4); Lymphocytes # 0.9 K/mcL (0.6-4.6); Mean Corpuscular Hemoglobin 31.5 pg (28.0-33.3); Mean Corpuscular Volume 95.5 fL (83.0-100.0); Mean Platelet Volume 9.7 fL (9.4-12.4); Monocytes # 0.4 K/mcL (0.0-1.3); Monocytes % 10.3 %; Neutrophils # 2.7 K/mcL (1.6-8.9); Platelet Count 204 K/mcL (140-400); Red Blood Count 3.36 M/mcL (3.82-4.97); Red Cell Distribution Width 12.8 % (11.5-14.5); Segmented Neutrophils % 63.8 %
[2016-11-07 04:47] LABS: INR 2.8; Prothrombin Time 31.7 Seconds (9.4-12.1)
[2016-11-07 05:04] LABS: BUN/Creatinine Ratio 16 (6-26); Blood Urea Nitrogen 12 mg/dL (7-20); Calcium 8.2 mg/dL (8.6-10.8); Carbon Dioxide 27 mEq/L (19-29); Chloride 104 mEq/L (98-109); Glucose 120 mg/dL (70-99); Osmolality,Calculated 289 (280-300); Potassium 3.9 mEq/L (3.5-4.5); Sodium 139 mEq/L (136-145); eGFR For African Americans > 60 (> 60); eGFR For Non-African Americans > 60 (> 60)
[2016-11-07] MEDS ORDERED: predniSONE 20 MG TABLET PO SCH (08:00)
[2016-11-07] MEDS: Ascorbic Acid 500 MG TABLET PO SCH (09:50)
[2016-11-07] MEDS: Folic Acid 1 MG TABLET PO SCH (09:50)
[2016-11-07] MEDS: Gabapentin 300 MG CAPSULE PO SCH (09:51)
[2016-11-07 14:55] VITALS: BP 130/75
--- NOTE | 2016-11-07 15:30 | Discharge Summary ---
Date of Encounter: 11/07/16 Time of Encounter: 15:06 - Discharge Diagnosis (1) Intractable pain Priority: Primary Status: Acute (2) Osteoarthritis of right hip Priority: Secondary Status: Chronic Qualifiers: Osteoarthritis type: unspecified Qualified Code(s): M16.11 - Unilateral primary osteoarthritis, right hip (3) DVT (deep venous thrombosis) Priority: Secondary Status: Chronic Qualifiers: DVT location: lower extremity Affected thrombotic vein of extremity: unspecified vein of extremity Chronicity: chronic Laterality: left Qualified Code(s): I82.502 - Chronic embolism and thrombosis of unspecified deep veins of left lower extremity - Discharge Medications Prescriptions: Acetaminophen [8 Hour] 650 mg PO Q8H #30 tablet.er HYDROcodone/Acet 5/325 mg [[place] 5-325 mg] 1 tab PO Q6H PRN #20 tab PRN Reason: Pain predniSONE [PredniSONE] 20 mg PO BIDWM #28 tab Home Medications: Ascorbic Acid [Vitamin C] 500 mg PO DAILY 01/26/15 [History] Calcium Carbonate [Tums] 500 mg PO DAILY 01/26/15 [History] Docusate [Colace] 200 mg PO DAILY 01/26/15 [History] Folic Acid 0.8 mg PO DAILY 01/26/15 [History] Gabapentin [Neurontin] 600 tab PO TID 01/26/15 [History] Vitamin B Complex [B Complex] 1 tab PO DAILY 01/26/15 [History] Vitamin D3/Folic Acid [Ortho D 3,775 Unit-1 mg Cap] 1 tab PO DAILY 01/26/15 [ History] Vitamin E (Dl,Tocopheryl Acet) [Vitamin E] 100 unit PO DAILY 01/26/15 [History] Calcium Carbonate [Calcium] 600 mg PO DAILY 10/18/15 [History] Duloxetine HCl [Cymbalta] 60 mg PO DAILY 10/18/15 [History] Pantoprazole Sodium [Protonix] 40 mg PO DAILY 10/18/15 [History] Potassium Chloride 30 meq PO DAILY 10/18/15 [History] Trospium Chloride 20 mg PO HS 10/18/15 [History] Metoprolol [Lopressor] 25 mg PO BID 11/05/16 [History] Nystatin POWDER [Nystop] 1 appl TP BID 11/05/16 [History] Warfarin [Coumadin] 5 mg PO AD 11/05/16 [History] hydrOXYzine HCl [Hydroxyzine HCl] 25 mg PO BID 11/05/16 [History] Acetaminophen [8 Hour] 650 mg PO Q8H #30 tablet.er 11/07/16 [Rx] HYDROcodone/Acet 5/325 mg [[place] 5-325 mg] 1 tab PO Q6H PRN #20 tab 11/07/16 [Rx ] predniSONE [PredniSONE] 20 mg PO BIDWM #28 tab 11/07/16 [Rx] Allergies/Adverse Reactions: Allergies acetaminophen [From Darvocet-N] Allergy (Verified 11/05/16 00:57) Hives cefazolin [From Ancef] Allergy (Verified 11/05/16 00:57) Hives codeine Allergy (Verified 11/05/16 00:57) Hives Erythromycin Base Allergy (Verified 11/05/16 00:57) Hives latex Allergy (Verified 11/05/16 00:57) Rash Oxycodone [From Percocet] Allergy (Verified 11/05/16 00:57) Hives Penicillins Allergy (Verified 11/05/16 00:57) Hives Procaine Allergy (Verified 11/05/16 00:57) Dizziness propoxyphene [From Darvocet-N] Allergy (Verified 11/05/16 00:57) Hives Sulfa (Sulfonamide Antibiotics) Allergy (Verified 11/05/16 00:57) Hives theophylline [From Emiliano-Dur] Allergy (Verified 11/05/16 00:57) Hives caffeine Adverse Reaction (Verified 11/05/16 00:57) Hallucinating Hydromorphone [From Dilaudid] Adverse Reaction (Verified 11/05/16 00:57) Itching lactose Adverse Reaction (Verified 11/05/16 00:57) Abdominal Pain tramadol Adverse Reaction (Verified 11/05/16 00:57) Rash Procedures/tests Complete & Pending: Procedures Performed prior 72 hours Category Date Time Status MR hip RT wo con [MR] Stat MRI 11/05/16 09:01 Completed Venous Doppler [EV venous imaging LE RT] Stat Y 11/06/16 18:15 Completed Date of admission: 11/05/16 04:33 Primary care physician: Mary Ortiz CNP Consults: 11/05/16 08:54 Consult to Occupational Therapy [CONS] Routine Comment: Evaluate, develop and implement POC Reason for Consult: rt. leg pain. Consult to Physical Therapy [CONS] Routine Comment: Evaluate, develop and implement POC Reason for Consult: rt. leg pain 11/06/16 11:30 Consult to Orthopedic Surgery [CONS] Routine Consulting Provider: [facility] Reason for Consult: Right hip pain/ severe osteoarthritis Time Notified: 11:30 Call Completed: Yes 11/07/16 10:18 Consult to Roll Cutting Operator [CONS] Routine Reason for SW Consult: PT/OT recommending rehab Discharging clinician: Tomas Thrasher Anticipated date of discharge: 11/07/16 - Patient Status Disposition: Home Health Service Condition: Good Functional capacity at discharge: uses cane/walker Overall status at discharge: patient is not back to baseline - Discharge Instructions Instructions: Depression (DC), Peripheral Vascular Disorders (DC) Follow Up With: Mary Ortiz CNP [Primary Care Provider] - 11/14/16 4:30 pm Abraham Mix MD [Partnered Physician] - 11/14/16 4:40 pm - Diet and Activity Activity: as per physical therapy Diet: low fat, low cholesterol, low salt diet Hospital course: Ms. Kimball is a 76 year old female patient with history of prior CVA, COPD, recurrent deep vein thrombosis and fibromyalgia, was admitted here with complaints of severe right-sided hip pain. She was evaluated for this initially with a pelvic x-ray which did not show any acute fracture. She underwent MRI of the right hip which showed severe osteoarthritis involving the right hip with synovitis without any acute fracture. Orthopedics was consulted. They recommended starting the patient on steroids and outpatient evaluation for total hip arthroplasty. Patient was evaluated by physical therapy and recommended placement to skilled rehabilitation. However patient wishes to go home with home health. Venous Doppler of right lower extremity was done and was negative for DVT. Patient did have supratherapeutic INR on presentation and her Coumadin was held. Today her INR is 2.8. Patient may resume Coumadin at this time. She will be discharged today with home health arranged and will follow up with orthopedics for further management of her right hip pain and osteoarthritis. She will be discharged on a short course of steroids and pain medications. - Time Spent with Patient Total time spent providing and/or coordinating discharge services: Greater than 30 minutes (45 min) - Constitutional Vitals: Temp Pulse Resp BP Pulse Ox 98 F 80 18 130/75 94 11/07/16 14:52 11/07/16 14:52 11/07/16 14:52 11/07/16 14:52 11/07/16 14:52 General appearance: Present: mild distress, A&O X 3, obese, answers questions appropriately - Respiratory Respiratory exam: Present: CTAB. Absent: accessory muscle use, rales, rhonchi, wheezes - Cardiovascular Cardiovascular exam: Present: RRR, +S1, +S2. Absent: diastolic murmur, gallop, rubs, systolic murmur - GI/Abdominal GI/Abdominal exam: Present: normal bowel sounds, soft, no peritoneal signs. Absent: distended, tenderness - Extremities Exam Extremities exam: Present: tenderness (right hip with decreased range of motion) , warm, radial pulses palpable and symmetrical. Absent: calf tenderness, cyanotic, pedal edema
--- NOTE | 2016-11-07 15:35 | Physician Discharge Referral ---
Home Health/Hosp Referral Info Transfer to: Home Health Provider in Charge Post Discharge: PCP - Diagnosis (1) Intractable pain Priority: Primary Status: Acute (2) Osteoarthritis of right hip Priority: Secondary Status: Chronic (3) DVT (deep venous thrombosis) Priority: Secondary Status: Chronic - Respiratory Orders Smoking Cessation: Smoking cessation has been advised. For more information, call the [place] Tobacco Quit Line at 2-950-AFCV-NOW. - Diet/Nutrition Diet/Nutrition Orders: Cardiac - Activity Activity Orders: Walker - Services Needed Following services are medically necessary services: Physical Therapy, Occupational Therapy - Transfer Medications Prescriptions: Acetaminophen [8 Hour] 650 mg PO Q8H #30 tablet.er HYDROcodone/Acet 5/325 mg [[place] 5-325 mg] 1 tab PO Q6H PRN #20 tab PRN Reason: Pain predniSONE [PredniSONE] 20 mg PO BIDWM #28 tab Home Medications: Ascorbic Acid [Vitamin C] 500 mg PO DAILY 01/26/15 [History] Calcium Carbonate [Tums] 500 mg PO DAILY 01/26/15 [History] Docusate [Colace] 200 mg PO DAILY 01/26/15 [History] Folic Acid 0.8 mg PO DAILY 01/26/15 [History] Gabapentin [Neurontin] 600 tab PO TID 01/26/15 [History] Vitamin B Complex [B Complex] 1 tab PO DAILY 01/26/15 [History] Vitamin D3/Folic Acid [Ortho D 3,775 Unit-1 mg Cap] 1 tab PO DAILY 01/26/15 [ History] Vitamin E (Dl,Tocopheryl Acet) [Vitamin E] 100 unit PO DAILY 01/26/15 [History] Calcium Carbonate [Calcium] 600 mg PO DAILY 10/18/15 [History] Duloxetine HCl [Cymbalta] 60 mg PO DAILY 10/18/15 [History] Pantoprazole Sodium [Protonix] 40 mg PO DAILY 10/18/15 [History] Potassium Chloride 30 meq PO DAILY 10/18/15 [History] Trospium Chloride 20 mg PO HS 10/18/15 [History] Metoprolol [Lopressor] 25 mg PO BID 11/05/16 [History] Nystatin POWDER [Nystop] 1 appl TP BID 11/05/16 [History] Warfarin [Coumadin] 5 mg PO AD 11/05/16 [History] hydrOXYzine HCl [Hydroxyzine HCl] 25 mg PO BID 11/05/16 [History] Acetaminophen [8 Hour] 650 mg PO Q8H #30 tablet.er 11/07/16 [Rx] HYDROcodone/Acet 5/325 mg [[place] 5-325 mg] 1 tab PO Q6H PRN #20 tab 11/07/16 [Rx ] predniSONE [PredniSONE] 20 mg PO BIDWM #28 tab 11/07/16 [Rx] Allergies/Adverse Reactions: Allergies acetaminophen [From Darvocet-N] Allergy (Verified 11/05/16 00:57) Hives cefazolin [From Ancef] Allergy (Verified 11/05/16 00:57) Hives codeine Allergy (Verified 11/05/16 00:57) Hives Erythromycin Base Allergy (Verified 11/05/16 00:57) Hives latex Allergy (Verified 11/05/16 00:57) Rash Oxycodone [From Percocet] Allergy (Verified 11/05/16 00:57) Hives Penicillins Allergy (Verified 11/05/16 00:57) Hives Procaine Allergy (Verified 11/05/16 00:57) Dizziness propoxyphene [From Darvocet-N] Allergy (Verified 11/05/16 00:57) Hives Sulfa (Sulfonamide Antibiotics) Allergy (Verified 11/05/16 00:57) Hives theophylline [From Emiliano-Dur] Allergy (Verified 11/05/16 00:57) Hives caffeine Adverse Reaction (Verified 11/05/16 00:57) Hallucinating Hydromorphone [From Dilaudid] Adverse Reaction (Verified 11/05/16 00:57) Itching lactose Adverse Reaction (Verified 11/05/16 00:57) Abdominal Pain tramadol Adverse Reaction (Verified 11/05/16 00:57) Rash Certification: Further, I certify that my clinical findings support that this patient is homebound (i.e. absences from home require considerable and taxing effort and are for medical reasons or sikh services or infrequently or short duration when for other reasons) because: Homebound Reason: Patient requires assistance of a person or device to safely leave home Attestation: My signature below is to certify that this patient is under my care and that I, or nurse practitioner, or a physician's psychiatric nursing assistant working with me, has a face-to -face encounter with this patient.
[2016-11-07] MEDS ORDERED: *HR* Warfarin 4 MG TABLET PO ONE (18:00)
== END 2016-11-07 16:54 | disposition home health service (06) ==
LOC: 3ANU 00:50 → EMEROO 00:50 → SUATTDRO 04:33 → 3ANU 05:23
PROVIDERS: ADMIT Internal Medicine Endocrinology, Diabetes & Metabolism; ATTEND Internal Medicine

== ENCOUNTER 2017-01-04 18:18 | Inpatient (IN) ==
--- NOTE | 2017-01-04 19:50 | Emergency Department Note ---
Disposition Clinical Impression: Cellulitis Qualifiers: Site of cellulitis: unspecified site Qualified Code(s): L03.90 - Cellulitis, unspecified Disposition: Admitted As Inpatient Condition: Good Time of Disposition: 01:00 Extremity Problem HPI - General Chief complaint: ED Extremity Problem,Nontraumatic Stated complaint: Right hip pain Time Seen by Provider: 01/04/17 19:16 Source: patient Limitations: no limitations Nursing Notes Reviewed: Yes Vital Signs Reviewed: Yes - History of Present Illness HPI Narrative: Pt is a 76 yo F who presents with a CC of R leg pain. States she woke up with it in the morning. Describes it as a severe burning sensation like someone is sticking a hot poker by her leg. States it radiates all the way down her leg. Past medical history significant for recent right hip surgery by Dr. Mix on . Patient denies having any injuries to the leg. States it was so severe she could barely sit down with it. Denies any nausea, vomiting, fever or chills. No chest pain, difficulty breathing. She has had some abdominal pain when she has some diarrhea. No problems with urination. Medical history also significant for prior blood clots and lupus. She is currently anticoagulated with Coumadin. States her INR levels have been subtherapeutic over the last few weeks. 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 Denies: chest pain - Related Data Home Medications Medication Instructions Recorded Confirmed Ascorbic Acid [Vitamin C] 500 mg PO DAILY 01/26/15 01/04/17 Docusate [Colace] 200 mg PO BID 01/26/15 01/04/17 Folic Acid 0.8 mg PO DAILY 01/26/15 01/04/17 Vitamin B Complex [B Complex] 1 tab PO DAILY 01/26/15 01/04/17 Vitamin D3/Folic Acid [Ortho D 1 tab PO DAILY 01/26/15 01/04/17 3,775 Unit-1 mg Cap] Vitamin E (Dl,Tocopheryl Acet) 100 unit PO DAILY 01/26/15 01/04/17 [Vitamin E] Calcium Carbonate [Calcium] 600 mg PO DAILY 10/18/15 01/04/17 Duloxetine HCl [Cymbalta] 60 mg PO BID 10/18/15 01/04/17 Pantoprazole Sodium [Protonix] 40 mg PO DAILY 10/18/15 01/04/17 Metoprolol [Lopressor] 25 mg PO BID 11/05/16 01/04/17 Nystatin POWDER [Nystop] 1 appl TP BID PRN 11/05/16 01/04/17 hydrOXYzine HCl [Hydroxyzine HCl] 25 mg PO TID PRN 11/05/16 01/04/17 Aspirin [Lo-Dose Aspirin EC] 81 mg PO DAILY 12/12/16 01/04/17 Multivitamin [One Daily 1 each PO DAILY 12/12/16 01/04/17 Multivitamin] Zinc Amino Acid Chelate [Zinc 50 mg PO DAILY 12/12/16 01/04/17 Chelated] HYDROcodone/Acet 5/325 mg [Rolla 1 tab PO HS 01/04/17 01/04/17 5-325 mg] L. Acidophilus/Bifid. Animalis 2 each PO DAILY 01/04/17 01/04/17 [Dialyvite Chewable Probiotic] Sennosides/Docusate Sodium [Senna 1 each PO HS 01/04/17 01/04/17 Plus] Warfarin [Coumadin] 10 mg PO Q72H 01/04/17 01/04/17 Allergies Allergy/AdvReac Type Severity Reaction Status Date / Time acetaminophen AdvReac CONSTIPATIO Verified 12/12/16 10:05 [From Darvocet-N] N caffeine AdvReac Shakiness Verified 12/12/16 10:05 cefazolin [From Ancef] AdvReac Difficulty Verified 12/12/16 10:05 Breathing codeine AdvReac Rash Verified 12/12/16 10:05 Erythromycin Base AdvReac Rash Verified 12/12/16 10:05 Hydromorphone [From Dilaudid] AdvReac Itching Verified 11/05/16 00:57 lactose AdvReac Abdominal Verified 11/05/16 00:57 Pain latex AdvReac Rash Verified 12/12/16 10:05 Oxycodone [From Percocet] AdvReac CONSTIPATIO Verified 12/12/16 10:05 N Penicillins AdvReac Rash Verified 12/12/16 10:05 Procaine AdvReac Dizziness Verified 12/12/16 10:05 propoxyphene AdvReac CONSTIPATIO Verified 12/12/16 10:05 [From Darvocet-N] N Sulfa (Sulfonamide AdvReac Hives Verified 12/12/16 10:05 Antibiotics) theophylline [From Emiliano-Dur] AdvReac Difficulty Verified 12/12/16 10:05 Breathing tramadol AdvReac Rash Verified 11/05/16 00:57 All systems ED: reviewed and negative except as stated. Past Medical History - Past Medical History Attestation: Yes The following information was validated with the patient. 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 - Social History Smoking Status: Never smoker Smokeless Tobacco Status: No Alcohol use: Reports: none Drug use: Reports: none Physical Exam - General Limitations: no limitations General appearance: alert - Head Head exam: atraumatic, normocephalic, normal inspection - Eye Eye exam: Present: normal appearance, PERRL, EOMI - ENT ENT exam: normal exam, normal oropharynx, mucous membranes moist - Neck Neck exam: Present: normal inspection, full ROM, trachea midline - Chest Chest inspection: Present: normal inspection, symmetric chest wall rise - Respiratory Respiratory exam: Present: normal lung sounds bilaterally - Cardiovascular Cardiovascular exam: Present: normal rhythm, tachycardia - Abdominal Exam Abdominal exam: Present: soft, Non-Tender. Absent: tenderness, distention, guarding, rebound, rigidity - Expanded Lower Extremity Exam Upper leg exam: Present: tenderness, erythema (mild R upper thigh). Absent: swelling, abrasion, ecchymosis, deformity, crepitus Knee exam: Present: tenderness Lower leg exam: Present: tenderness - Back Exam Back exam: Present: normal inspection, full ROM. Absent: tenderness - Neurological Exam Neurological exam: Present: alert - Psychiatric Psychiatric exam: Present: normal affect, normal mood - Skin Skin exam: Present: warm, dry, intact, normal color Course Course Narrative: Patient seen and examined. Right upper leg worsening pain over the day. Describes as a 10 out of 10 burning sensation. Upon examination, there is some mild erythema and warmth to the region. Since she is at high risk of DVTs with her lupus and has been subtherapeutic, we will get a venous Doppler ultrasound of her right lower extremity to rule out DVT. We will also get some basic lab work, lactic acid and a CPK level. We will place on a dose of IV vancomycin. - Reevaluation(s) Reevaluation #1: Labwork unremarkable except for supratherapeutic INR. Concerned that with patient's recent surgery and her worsening pain, she is more of a fall risk. Will admit for intractable pain, IV antibiotics for cellulitis, supratherapeutic INR. Time: 01:00 Vital Signs Temperature 98 F 01/04/17 18:39 Pulse Rate 100 01/04/17 18:39 Respiratory Rate 18 01/04/17 18:39 Blood Pressure 132/79 01/04/17 18:39 O2 Sat by Pulse Oximetry 99 01/04/17 18:39 Temperature 97.8 F 01/05/17 07:40 Pulse Rate 82 01/05/17 07:40 Respiratory Rate 18 01/05/17 07:40 Blood Pressure 119/70 01/05/17 07:40 O2 Sat by Pulse Oximetry 94 01/05/17 07:40 Oxygen Delivery Oxygen Delivery Room Air Extremity Problem, Nontraumati - Medical Records Medical records reviewed: Yes I reviewed the patient's medical records. - Lab Data Lab results reviewed: Yes I reviewed the patient's lab results. Result diagrams: 01/05/17 04:43 01/05/17 04:43 Lab Results 01/04/17 01/04/17 01/04/17 Range/Units 20:23 20:40 Unknown WBC 4.8 (4.3-11.1) K/mcL RBC 3.93 (3.82-4.97) M/mcL Hgb 12.0 (11.5-15.4) g/dL Hct 36.2 (35.3-44.9) % MCV 92.1 (83.0-100.0) fL MCH 30.5 (28.0-33.3) pg MCHC 33.1 (31.6-35.5) g/dL RDW 14.0 (11.5-14.5) % Plt Count 357 (140-400) K/mcL MPV 9.6 (9.4-12.4) fL Immature Gran % 0.4 (0-4) % Seg Neutrophils % 59.9 % Lymphocytes % 21.8 % Monocytes % 10.5 % Eosinophils % 6.3 % Basophils % 1.1 % Neutrophils # 2.9 (1.6-8.9) K/mcL Lymphocytes # 1.0 (0.6-4.6) K/mcL Monocytes # 0.5 (0.0-1.3) K/mcL Eosinophils # 0.3 (0.0-0.6) K/mcL Basophils # 0.1 (0.0-0.2) K/mcL Immature Plt Fraction 1.8 (1.1-6.1) % PT (9.4-12.1) Seconds INR Sodium 142 (136-145) mEq/L Potassium 3.5 (3.5-4.5) mEq/L Chloride 108 (98-109) mEq/L Carbon Dioxide 25 (19-29) mEq/L BUN 14 (7-20) mg/dL Creatinine 0.72 (0.57-1.11) mg/dL Est GFR ( Amer) > 60 (> 60) Est GFR (Non-Af Amer) > 60 (> 60) BUN/Creatinine Ratio 19 (6-26) Glucose 96 (70-99) mg/dL Calculated Osmolality 294 (280-300) Lactic Acid 0.6 (0.5-2.2) mmol/L Calcium 8.7 (8.6-10.8) mg/dL Creatine Kinase 59 (29-168) Units/L 01/04/17 Range/Units Unknown WBC (4.3-11.1) K/mcL RBC (3.82-4.97) M/mcL Hgb (11.5-15.4) g/dL Hct (35.3-44.9) % MCV (83.0-100.0) fL MCH (28.0-33.3) pg MCHC (31.6-35.5) g/dL RDW (11.5-14.5) % Plt Count (140-400) K/mcL MPV (9.4-12.4) fL Immature Gran % (0-4) % Seg Neutrophils % % Lymphocytes % % Monocytes % % Eosinophils % % Basophils % % Neutrophils # (1.6-8.9) K/mcL Lymphocytes # (0.6-4.6) K/mcL Monocytes # (0.0-1.3) K/mcL Eosinophils # (0.0-0.6) K/mcL Basophils # (0.0-0.2) K/mcL Immature Plt Fraction (1.1-6.1) % PT 53.0 H* (9.4-12.1) Seconds INR 4.8 H* Sodium (136-145) mEq/L Potassium (3.5-4.5) mEq/L Chloride (98-109) mEq/L Carbon Dioxide (19-29) mEq/L BUN (7-20) mg/dL Creatinine (0.57-1.11) mg/dL Est GFR ( Amer) (> 60) Est GFR (Non-Af Amer) (> 60) BUN/Creatinine Ratio (6-26) Glucose (70-99) mg/dL Calculated Osmolality (280-300) Lactic Acid (0.5-2.2) mmol/L Calcium (8.6-10.8) mg/dL Creatine Kinase (29-168) Units/L - Radiology Data Radiology results reviewed: Yes I reviewed the patient's radiology results. Hip X-Ray 01/04/17 19:50 IMPRESSION: Uncomplicated right total hip arthroplasty. D/ / 01/04/2017 20:30:29 Cuauhtemoc Ivey MD / sparkle Interpreting Provider: Cuauhtemoc Ivey MD Lower Extremity CT 01/04/17 21:24 IMPRESSION: 1. No convincing acute osseous abnormality. Subtle linear lucency across the proximal portion of the right greater trochanter, seen on two of the sagittal images, is suspected to be artifact. If patient has had recent trauma, and has pain at that location, a nondisplaced fracture would also be in the differential but is less likely. 2. Mild skin thickening and subcutaneous edema/inflammation along the lateral portion of the proximal right thigh/hip. No evidence of abnormal fluid collection. 3. Status post right hip arthroplasty. 4. Tricompartmental degenerative changes in the right knee, most notable in the patellofemoral compartment. D/ : / 01/05/2017 07:26:18 Evan Wilson MD / carey Interpreting Provider: Evan Wilson MD Attestation Statement - Attestation Attestation: I examined this patient and my medical decision-making was reviewed with the Resident Physician. I agree with the documented findings, disposition and treatment plan as described except to the extent set forth below. Patient to the ED complaining of right hip pain. Patient is status post hip replacement a few weeks ago with Dr. Mix. She is concerned she has a history of blood clots. Denies fever. Denies drainage from the wound. On examination she has a well-healed incision. No drainage. There is a moderate amount of erythema surrounding the wound. Plan. Patient afebrile. Normal white blood cell count. Ultrasound negative for DVT. She is supratherapeutic on her INR. Start on antibiotic. CT pending to rule out hemorrhage. Admitted to medicine.
[2017-01-04 20:34] LABS: Basophils # 0.1 K/mcL (0.0-0.2); Basophils % 1.1 %; Eosinophils # 0.3 K/mcL (0.0-0.6); Eosinophils % 6.3 %; Hematocrit 36.2 % (35.3-44.9); Immature Granulocytes % 0.4 % (0-4); Immature Platelets 1.8 % (1.1-6.1); Lymphocytes % 21.8 %; Mean Corpuscular HGB Conc 33.1 g/dL (31.6-35.5); Mean Corpuscular Hemoglobin 30.5 pg (28.0-33.3); Mean Corpuscular Volume 92.1 fL (83.0-100.0); Mean Platelet Volume 9.6 fL (9.4-12.4); Monocytes # 0.5 K/mcL (0.0-1.3); Monocytes % 10.5 %; Neutrophils # 2.9 K/mcL (1.6-8.9); Platelet Count 357 K/mcL (140-400); Red Blood Count 3.93 M/mcL (3.82-4.97); Segmented Neutrophils % 59.9 %
[2017-01-04 20:47] LABS: INR 4.8
[2017-01-04 20:49] LABS: BUN/Creatinine Ratio 19 (6-26); Blood Urea Nitrogen 14 mg/dL (7-20); Calcium 8.7 mg/dL (8.6-10.8); Carbon Dioxide 25 mEq/L (19-29); Chloride 108 mEq/L (98-109); Creatine Kinase 59 Units/L (29-168); Glucose 96 mg/dL (70-99); Osmolality,Calculated 294 (280-300); Potassium 3.5 mEq/L (3.5-4.5); Sodium 142 mEq/L (136-145); eGFR For African Americans > 60 (> 60); eGFR For Non-African Americans > 60 (> 60)
[2017-01-04] MEDS ORDERED: Ondansetron 4 MG/2 ML VIAL IVP ONE (21:14)
[2017-01-04] MEDS ORDERED: *HR* Morphine 2 MG/ML SYRINGE IVP ONE (21:14)
[2017-01-04] MEDS ORDERED: *HR* HYDROmorphone (PF) 1 MG/ML SYRINGE IVP ONE (21:24)
[2017-01-04] MEDS ORDERED: Vancomycin 1,000 MG in D5% in Water 250 ML IVPB ONE (22:00)
[2017-01-04] MEDS ORDERED: *HR* Morphine 2 MG/ML SYRINGE IVP PRN (23:07)
[2017-01-05] MEDS ORDERED: *HR* HYDROmorphone (PF) 1 MG/ML SYRINGE IVP PRN (03:07)
[2017-01-05] MEDS ORDERED: Naloxone 0.4 MG/ML INJ IVP PRN (03:07)
[2017-01-05] MEDS ORDERED: 0.9 % Sodium Chloride w KCl 20 MEQ/1,000 ML MLS IVC SCH (03:15)
[2017-01-05] MEDS ORDERED: hydrOXYzine pamoate 25 MG CAPSULE PO PRN (03:15)
--- NOTE | 2017-01-05 03:35 | Internal Med History&Physical ---
Date of Encounter: 01/05/17 Time of Encounter: 02:40 Assessment and Plan (1) Cellulitis of right lower extremity Current visit: Yes Status: Acute 1. Blood cultures ordered per my request. 2. Will continue IV Vancomycin and Levaquin. 3. Consult Orthopedics as I'm concerned for infected joint. 4. IV pain control. (2) Status post right hip replacement Current visit: Yes Status: Acute 1. Orhtopedics consult. I am concerned about infected joint. 2. Surgical management per Orthopedics. (3) History of DVT (deep vein thrombosis) Current visit: No Status: Chronic 1. Patient on chronic Coumadin therapy. 2. INR elevated. Will hold Coumadin and monitor PT/INR daily. 3. Resume Coumadin when INR level at safe levels. (4) DVT prophylaxis Current visit: Yes Status: Acute 1. On Coumadin. Internal Medicine - H&P: HPI Chief complaint: pain in right leg Admitted From: Emergency Dept Plans for Post Hospital Care: Home History of present illness: Ms. Kimball is a 76 year old female who presents the ER tonight with complaints of excruciating pain and burning in her right leg. She had hip replacement in her right leg roughly 2-3 weeks ago. Over the last couple of days, she developed increasing severe pain in her leg. It is now unbearable, red, very tender to touch, and burning in nature. In the ER, the patient appears to have cellulitis and no evidence of DVT. Patient has a history of DVT and remains on Coumadin. Her INR is actually supratherapeutic. Nonetheless, Dopplers were performed in the ER, which were negative for DVT. There was concern for cellulitis, and she was subsequently admitted to the hospitalist service. I requested that the ER obtain a CT of the lower extremity to rule out hematoma and/or abscess. This was negative, but she did have evidence of localized edema and inflammation consistent with cellulitis. She received antibiotic in the ER. However, she had not yet obtained blood cultures. Once I received a call from the ER, I requested that blood cultures be drawn immediately. Orthopedics had not yet been consulted. Upon my assessment of the patient, she is having excruciating pain in her right hip. The hip is very warm to touch, and it is very tender. There is some localized swelling. The wound appears to be intact and without drainage. It is also erythematous. She states the pain is unbearable. Past Med Surg Social Fam HX - Past Medical History Attestation: Yes The following information was validated with the patient. Source: old records reviewed Medical history: asthma, cancer (breast), COPD, CVA, DVT, fibromyalgia, hypertension, kidney stones Psychiatric history: anxiety, depression - Past Surgical History Surgical History: non-contributory, breast surgery, hysterectomy - Social History Smoking Status: Never smoker Smokeless Tobacco Status: No Alcohol use: none Drug use: none Current living situation: Home, With Family Recent Out of Country Travel Within the Last 8 Weeks: No - Family History Father Name: martine azmbrano Living Status: Age at : 87 Cause of : dementia Hx Family Cardiac Disorders: Yes Hx Family Cancer: Yes (prostate) Mother Family Member Ethnicity: Non- Living Status: Hx Family Cardiac Disorders: Yes Hx Family Respiratory Disorders: Yes Hx Family Cancer: Yes (rectal) Hx Family GI Disorders: No Hx Family Endocrine Disorder: No Hx Family Neuromuscular Disorders: No Hx Family Neurologic Disorders: No Hx Family HEENT Disorders: No Hx Family Autoimmune Disorders: No Brother Hx Family Cardiac Disorders: Yes ([place], Heart stents) Hx Family Respiratory Disorders: No Hx Family Cancer: Yes (colon) Hx Family GI Disorders: No Hx Family Endocrine Disorder: No Hx Family Neuromuscular Disorders: No Hx Family Neurologic Disorders: No Hx Family HEENT Disorders: No Hx Family Autoimmune Disorders: No Internal Medicine - H&P: Meds Ascorbic Acid [Vitamin C] 500 mg PO DAILY 01/26/15 [History] Docusate [Colace] 200 mg PO BID 01/26/15 [History] Folic Acid 0.8 mg PO DAILY 01/26/15 [History] Vitamin B Complex [B Complex] 1 tab PO DAILY 01/26/15 [History] Vitamin D3/Folic Acid [Ortho D 3,775 Unit-1 mg Cap] 1 tab PO DAILY 01/26/15 [ History] Vitamin E (Dl,Tocopheryl Acet) [Vitamin E] 100 unit PO DAILY 01/26/15 [History] Calcium Carbonate [Calcium] 600 mg PO DAILY 10/18/15 [History] Duloxetine HCl [Cymbalta] 60 mg PO BID 10/18/15 [History] Pantoprazole Sodium [Protonix] 40 mg PO DAILY 10/18/15 [History] Metoprolol [Lopressor] 25 mg PO BID 11/05/16 [History] Nystatin POWDER [Nystop] 1 appl TP BID PRN 11/05/16 [History] hydrOXYzine HCl [Hydroxyzine HCl] 25 mg PO TID PRN 11/05/16 [History] Aspirin [Lo-Dose Aspirin EC] 81 mg PO DAILY 12/12/16 [History] Multivitamin [One Daily Multivitamin] 1 each PO DAILY 12/12/16 [History] Zinc Amino Acid Chelate [Zinc Chelated] 50 mg PO DAILY 12/12/16 [History] HYDROcodone/Acet 5/325 mg [[place] 5-325 mg] 1 tab PO HS 01/04/17 [History] L. Acidophilus/Bifid. Animalis [Dialyvite Chewable Probiotic] 2 each PO DAILY [History] Sennosides/Docusate Sodium [Senna Plus] 1 each PO HS 01/04/17 [History] Warfarin [Coumadin] 10 mg PO Q72H 01/04/17 [History] 3 Allergy/AdvReac Type Severity Reaction Status Date / Time acetaminophen AdvReac CONSTIPATIO Verified 12/12/16 10:05 [From Darvocet-N] N caffeine AdvReac Shakiness Verified 12/12/16 10:05 cefazolin [From Ancef] AdvReac Difficulty Verified 12/12/16 10:05 Breathing codeine AdvReac Rash Verified 12/12/16 10:05 Erythromycin Base AdvReac Rash Verified 12/12/16 10:05 Hydromorphone [From Dilaudid] AdvReac Itching Verified 11/05/16 00:57 lactose AdvReac Abdominal Verified 11/05/16 00:57 Pain latex AdvReac Rash Verified 12/12/16 10:05 Oxycodone [From Percocet] AdvReac CONSTIPATIO Verified 12/12/16 10:05 N Penicillins AdvReac Rash Verified 12/12/16 10:05 Procaine AdvReac Dizziness Verified 12/12/16 10:05 propoxyphene AdvReac CONSTIPATIO Verified 12/12/16 10:05 [From Darvocet-N] N Sulfa (Sulfonamide AdvReac Hives Verified 12/12/16 10:05 Antibiotics) theophylline [From Emiliano-Dur] AdvReac Difficulty Verified 12/12/16 10:05 Breathing tramadol AdvReac Rash Verified 11/05/16 00:57 - Constitutional Constitutional: fever(s), no chills, no night sweats - EENT Eyes: no blurry vision, no change in vision Ears: no ear pain, no tinnitus Nose, mouth and throat: no nasal congestion, no sinus pressure, no sore throat - Cardiovascular Cardiovascular ROS IM: no chest pain, no dyspnea, no dyspnea on exertion - Respiratory Respiratory: no cough, no hemoptysis, no chest congestion - Gastrointestinal Gastrointestinal: no abdominal pain, no diarrhea, no hematemesis, no hematochezia, no melena, no nausea, no vomiting - Genitourinary Genitourinary: no dysuria, no flank pain - Musculoskeletal Musculoskeletal ROS IM: arthralgias, joint swelling, limited range of motion - Integumentary Integumentary IM: no rash - Neurological Neurological ROS: no dizziness, no focal weakness, no frequent falls - Psychiatric Psychiatric: anxiety, no depression - Endocrine Endocrine IM: no polydipsia, no polyuria - Allergic/Immunologic Allergic/Immunologic: no GI upset with certain foods - Constitutional Vitals: Temp Pulse Resp BP Pulse Ox 97.7 F 78 19 136/81 95 01/04/17 23:08 01/04/17 23:08 01/04/17 23:08 01/04/17 23:08 01/04/17 23:08 General appearance: Present: cooperative, A&O X 3, answers questions appropriately Exam: in moderate pain from right hip - Head Head exam: Present: atraumatic, normal inspection - Eye Eye exam: Present: EOMI, PERRL. Absent: scleral icterus Pupils: Present: normal accommodation - ENT ENT exam: Present: mucous membranes dry, normal exam - Neck Neck exam general surgery: Present: full ROM, supple. Absent: tenderness - Expanded Neck Exam Neck exam: Absent: carotid bruit - Respiratory Respiratory exam: Present: CTAB. Absent: chest wall tenderness, rales, respiratory distress, rhonchi, wheezes - Cardiovascular Cardiovascular exam: Present: RRR, +S1, +S2. Absent: diastolic murmur, systolic murmur Additional comments: A port in right upper chest - GI/Abdominal GI/Abdominal exam: Present: normal bowel sounds, soft. Absent: hepatomegaly, mass, splenomegaly, tenderness - Extremities Exam Extremities exam: Present: joint swelling (right hip with localized redness, swelling, warmth, and severe pain), tenderness. Absent: calf tenderness, full ROM - Back Exam Back exam: Absent: CVA tenderness (L), CVA tenderness (R) - Neurological Exam Neurological exam: Present: alert, CN II-XII intact, oriented X3, no focal deficits - Psychiatric Psychiatric exam: Present: normal affect, normal mood - Skin Skin exam: Present: dry, erythema (right hip as noted above), warm Internal Med - H&P Results - Labs CBC & Chem 7: 01/04/17 20:23 01/04/17 Unknown Labs: BMP 01/04/17 Unknown Sodium 142 Potassium 3.5 Chloride 108 Carbon Dioxide 25 BUN 14 Creatinine 0.72 Glucose 96 Calcium 8.7 - VTE Reasons for not Prescribing Prophylaxis: Not indicated-Anticoagulated or INR therapeutic
[2017-01-05] MEDS ORDERED: Vancomycin 1,000 MG in D5% in Water 250 ML IVPB SCH ×2 (04:00→22:00)
[2017-01-05 04:59] LABS: Eosinophils # 0.3 K/mcL (0.0-0.6); Eosinophils % 7.4 %; Hematocrit 34.1 % (35.3-44.9); Hemoglobin 11.3 g/dL (11.5-15.4); Immature Granulocytes % 0.5 % (0-4); Lymphocytes % 24.6 %; Mean Corpuscular HGB Conc 33.1 g/dL (31.6-35.5); Mean Corpuscular Hemoglobin 30.8 pg (28.0-33.3); Mean Corpuscular Volume 92.9 fL (83.0-100.0); Mean Platelet Volume 8.9 fL (9.4-12.4); Monocytes # 0.5 K/mcL (0.0-1.3); Neutrophils # 2.1 K/mcL (1.6-8.9); Platelet Count 285 K/mcL (140-400); Red Blood Count 3.67 M/mcL (3.82-4.97); Segmented Neutrophils % 53.5 %
[2017-01-05 05:11] LABS: INR 3.9
[2017-01-05 05:12] LABS: Alanine Aminotransferase 14 Units/L (0-55); Albumin 2.9 g/dL (3.5-5.0); Alkaline Phosphatase 72 Units/L (38-126); Aspartate Amino Transferase 18 Units/L (5-34); BUN/Creatinine Ratio 14 (6-26); Bilirubin,Total 0.5 mg/dL (0.2-1.2); Blood Urea Nitrogen 11 mg/dL (7-20); Calcium 8.4 mg/dL (8.6-10.8); Carbon Dioxide 25 mEq/L (19-29); Chloride 108 mEq/L (98-109); Glucose 94 mg/dL (70-99); Osmolality,Calculated 291 (280-300); Potassium 3.7 mEq/L (3.5-4.5); Sodium 141 mEq/L (136-145); Total Protein 5.9 g/dL (6.0-8.3); eGFR For African Americans > 60 (> 60); eGFR For Non-African Americans > 60 (> 60)
[2017-01-05 05:14] LABS: Prothrombin Time 43.4 Seconds (9.4-12.1)
[2017-01-05] MEDS: *HR* HYDROcodone/Acet 5/325 mg TABLET PO PRN ×3 (06:34→23:21)
--- NOTE | 2017-01-05 06:53 | Orthopedics Progress Note ---
Date of Encounter: 01/05/17 Time of Encounter: 06:50 - Assessment and Plan (1) History of total right hip arthroplasty Current Visit: Yes Status: Acute On exam, the patient is lying in bed in some distress secondary to right hip pain. Afebrile vital signs stable. She has no pain with passive range of motion of the right hip in external or external rotation. She has no increased pain with axial loading of the hip. There is no evidence of dislocation. She is neurovascularly intact with regard to her bilateral lower extremities. The wound is well approximated, clean dry and intact. I see no significant ecchymosis or bruising. He does have some tenderness around the lateral hip and abductor insertion region. AP pelvis reveals well-seated right total hip arthroplasty without evidence of complication or fracture. Incidental note of prior lumbar fusion without hardware complication is seen. CT scan of the right lower extremity shows well-seated total hip arthroplasty components without fracture or complication. There is no significant hematoma and the periacetabular/hip region. There is no evidence of abscess or other acute finding noted. Impression: Status post right total hip arthroplasty with likely acute myofascial injury. Plan: I have low suspicion for infection although workup for this entity is appropriate. Suggest mobilization as tolerated with physical therapy and analgesic control. There is no role for acute surgical intervention. Subjective Principal diagnosis: Status post right total hip arthroplasty, right hip pain Interval history: Miss Mendez a 76-year-old woman well-known to our practice is status post right total hip arthroplasty 12/11/[address] Abraham Mix.. She has had an uneventful postoperative course. However she had an acute onset of severe right hip pain which and interfered with ambulation ability. Denies fevers chills or drainage. Has been ambulating with walker and cane uneventfully prior to this episode. She denies falls or any trauma. We are asked to see regarding possible infection or other etiology for acute onset right hip pain. Objective Vital signs: Vital Signs Temp Pulse Resp BP Pulse Ox 01/05/17 03:40 97.6 F 88 16 127/63 94 01/04/17 23:08 97.7 F 78 19 136/81 95 01/04/17 22:45 16 152/81 Intake and Output 01/04/17 01/04/17 01/05/17 15:59 23:59 07:59 Other: Weight 69.7 kg - Labs CBC & BMP: 01/05/17 04:43 01/05/17 04:43 Labs: Abnormal lab results WBC 3.9 K/mcL (4.3-11.1) L 01/05/17 04:43 RBC 3.67 M/mcL (3.82-4.97) L 01/05/17 04:43 Hgb 11.3 g/dL (11.5-15.4) L 01/05/17 04:43 Hct 34.1 % (35.3-44.9) L 01/05/17 04:43 MPV 8.9 fL (9.4-12.4) L 01/05/17 04:43 PT 43.4 Seconds (9.4-12.1) H* 01/05/17 04:43 Calcium 8.4 mg/dL (8.6-10.8) L 01/05/17 04:43 Serum Total Protein 5.9 g/dL (6.0-8.3) L 01/05/17 04:43 Albumin 2.9 g/dL (3.5-5.0) L 01/05/17 04:43 Albumin/Globulin Ratio 1.0 (1.1-2.2) L 01/05/17 04:43 - VTE Reasons for not Prescribing Prophylaxis: Not indicated-Anticoagulated or INR therapeutic Consult Discharge Plan - Plan Referrals: Mary Ortiz, [employer] [Primary Care Provider] -
--- NOTE | 2017-01-05 08:32 | Internal Med Progress Note ---
Date of Encounter: 01/05/17 Time of Encounter: 08:30 - Assessment and plan (1) Cellulitis of right lower extremity Current Visit: Yes Status: Acute Assessment and plan: Cellulitis is suspected, due to tenderness and swelling, CT scan confirms mild skin thickening ad subcutaneous edema/inflammation Continue Levaquin Hold Vanco for now Change to Cleocin Orthoedic eval appreciated, states likely acute myofascial injury. Continue pain control Hold IVF for now, patient is hemodynamically stable (2) Status post total hip replacement, right Current Visit: Yes Status: Chronic Assessment and plan: Continue pain control. PT per ortho. Pain control. INR is supra-therapeutic, EPCDs as tolerated (3) GERD (gastroesophageal reflux disease) Current Visit: Yes Status: Chronic Assessment and plan: Continue home meds Qualifiers: Esophagitis presence: esophagitis presence not specified Qualified Code(s) : K21.9 - Gastro-esophageal reflux disease without esophagitis (4) Depression Current Visit: Yes Status: Chronic Assessment and plan: Continue home meds Qualifiers: Depression Type: unspecified Qualified Code(s): F32.9 - Major depressive disorder, single episode, unspecified (5) HTN (hypertension) Current Visit: Yes Status: Chronic Assessment and plan: Mostly controlled, continue home meds Qualifiers: Hypertension type: essential hypertension Qualified Code(s): I10 - Essential (primary) hypertension (6) COPD (chronic obstructive pulmonary disease) Current Visit: Yes Status: Chronic Assessment and plan: Not in exacerbation, duonebs prn Qualifiers: COPD type: unspecified COPD Qualified Code(s): J44.9 - Chronic obstructive pulmonary disease, unspecified (7) History of DVT (deep vein thrombosis) Current Visit: Yes Status: Chronic Assessment and plan: INR 4.8 on admission, 3.9 this a.m Continue to hold Coumadin Dose with INR - Subjective Interval history: Seen and evaluated at bedside 76 F with multiple co-morbidities, recent hip arthroplasty, admitted for suspected cellulitis around op-site CT scan ruled out any joint collection, joint is in place Orthopedics eval noted Patient was sleeping soundly when I entered her room, she is rousable, she reports some improvement in pain - Constitutional Vitals: Temp Pulse Resp BP Pulse Ox 97.8 F 82 18 119/70 94 01/05/17 07:40 01/05/17 07:40 01/05/17 07:40 01/05/17 07:40 01/05/17 07:40 General appearance: Present: cooperative, A&O X 3, pleasant, no acute distress, answers questions appropriately - Head Head exam: Present: atraumatic, normocephalic - Eye Eye exam: Present: PERRL, conjuntiva pink, sclera anicteric Pupils: Present: PERRL - Neck Neck exam general surgery: Present: supple, trachea midline. Absent: lymphadenopathy - Respiratory Respiratory exam: Present: CTAB. Absent: accessory muscle use, rales, rhonchi, wheezes Additional comments: R chest wall port, clean surrounding dressing - Cardiovascular Cardiovascular exam: Present: RRR, +S1, +S2. Absent: diastolic murmur, gallop, rubs, systolic murmur - GI/Abdominal GI/Abdominal exam: Present: normal bowel sounds, soft, no peritoneal signs. Absent: distended, tenderness - Extremities Exam Extremities exam: Present: warm, radial pulses palpable and symmetrical. Absent : calf tenderness, cyanotic, pedal edema Additional comments: R hip incision site clean and dry, with some surrounding edema, no distinct erythema. Exquistitely tender Distal part of extremity is well vascularized LLE with chronic venous stasis changes - Neurological Exam Neurological exam: Present: alert, CN II-XII intact, oriented X3, no focal deficits. Absent: pronater drift, facial droop, speech deficit - Skin Skin exam: Present: dry, intact Internal Medicine: Result - Labs CBC & Chem 7: 01/05/17 04:43 01/05/17 04:43 Labs: Short CBC 01/05/17 Range/Units 04:43 WBC 3.9 L (4.3-11.1) K/mcL Hgb 11.3 L (11.5-15.4) g/dL Hct 34.1 L (35.3-44.9) % Plt Count 285 (140-400) K/mcL Neutrophils # 2.1 (1.6-8.9) K/mcL BMP 01/05/17 04:43 Sodium 141 Potassium 3.7 Chloride 108 Carbon Dioxide 25 BUN 11 Creatinine 0.78 Glucose 94 Calcium 8.4 L Liver Function 01/05/17 Range/Units 04:43 Total Bilirubin 0.5 (0.2-1.2) mg/dL AST 18 (5-34) Units/L ALT 14 (0-55) Units/L Alkaline Phosphatase 72 (38-126) Units/L Albumin 2.9 L (3.5-5.0) g/dL - ABG Interpretation ABG results: PT/INR, D-dimer PT 43.4 Seconds (9.4-12.1) H* 01/05/17 04:43 - VTE Reasons for not Prescribing Prophylaxis: Not indicated-Anticoagulated or INR therapeutic Consult Discharge Plan - Plan Referrals: Mary Ortiz, DIRECTOR OF MARKETING [Primary Care Provider] -
--- NOTE | 2017-01-05 09:56 | Venous Imaging Report ---
LE Venous Duplex Patient Name:Stacy Kimball Order Number:[id number] Procedure Date:01/04/2017 Date:2Age:76 yrs Gender:Female Location:[facility] ED Room #: ER2 Therapist Asst:Silva Jolly RDCS Referring MD:DO Chester Groves MD:Abdiel Mojica MD Primary Indications:r/o DVT Secondary Indications: Risk Factors Yes/No Hx of DVT Yes Anticoagulants Yes [place] Filter Yes Hx of Chemotherapy Yes Impressions: Normal right lower extremity deep and superficial venous exam. Normal contralateral common femoral vein. Recommendations: After imaging the patient returned to their room. Gave vascular preliminary results to Pauline Krishnamurthy in emergency department on 01/04/2017 at 21:08. Test completed on 01/04/2017 at 9:04:00 pm. Findings Venous Duplex Results: Right: Venous imaging of the lower extremity reveals full patency and normal vessel compressibility of the right distal iliac, right common femoral, right superficial femoral, right popliteal, right posterior tibial, right peroneal, right great saphenous and right lesser saphenous. Doppler signals in the evaluated veins were normal. Left: Venous imaging of the lower extremity reveals full patency and normal vessel compressibility of the left common femoral. Doppler signals in the evaluated veins were normal. Lower Extremity Venous Duplex Side Vein Compress Spontaneous Flow Augment Diameter (cm) Depth (cm) Right Distal Iliac Normal Yes Phasic Yes Right Common Femoral Normal Yes Phasic Yes Right Superficial Femoral Normal Yes Phasic Yes Right Popliteal Normal Yes Phasic Yes Right Posterior Tibial Normal Yes Phasic Yes Right Peroneal Normal Yes Phasic Yes Right Great Saphenous Normal Yes Phasic Yes Right Lesser Saphenous Normal Yes Phasic Yes Left Common Femoral Normal Yes Phasic Yes Updated by Abdiel Mojica MD on 01/05/2017 9:48:30 AM electronically signed on 01/05/2017 9:49:04 AM with status of Final
[2017-01-05] MEDS: Ascorbic Acid 500 MG TABLET PO SCH (10:51)
[2017-01-05] MEDS: Folic Acid 1 MG TABLET PO SCH (10:51)
[2017-01-05] MEDS: Aspirin Enteric Coated 81 MG Tablet PO SCH (10:51)
[2017-01-05] MEDS: Lactobacillus 1 EACH CAP.SPRINK PO SCH (10:51)
[2017-01-05] MEDS: Multivit/Ca/Min/Fe/FA 1 TAB TABLET PO SCH (10:51)
[2017-01-05] MEDS: Levofloxacin 750 MG/150 ML 750 MG/150 ML BAG IVPB SCH (10:52)
[2017-01-05] MEDS: MOM Conc 10 ML UD.LIQ PO PRN (15:31)
[2017-01-05] MEDS ORDERED: Aminoglycoside Consult 1 EACH MC ONE (15:53)
[2017-01-05] MEDS: Clindamycin 300 MG in D5% in Water 50 ML IVPB SCH ×2 (16:08→23:21)
[2017-01-05] MEDS ORDERED: Warfarin perPT PO PRN (18:00)
[2017-01-05] MEDS: Sennosides/Docusate Sodium TABLET PO SCH (21:00)
[2017-01-06] MEDS: *HR* HYDROcodone/Acet 5/325 mg TABLET PO PRN ×2 (05:13→17:00)
[2017-01-06 05:43] LABS: Basophils % 1.1 %; Eosinophils # 0.4 K/mcL (0.0-0.6); Eosinophils % 10.6 %; Hematocrit 34.1 % (35.3-44.9); Hemoglobin 11.1 g/dL (11.5-15.4); Immature Granulocytes % 0.3 % (0-4); Lymphocytes % 25.6 %; Mean Corpuscular HGB Conc 32.6 g/dL (31.6-35.5); Mean Corpuscular Hemoglobin 30.4 pg (28.0-33.3); Mean Corpuscular Volume 93.4 fL (83.0-100.0); Monocytes # 0.5 K/mcL (0.0-1.3); Monocytes % 13.2 %; Neutrophils # 1.9 K/mcL (1.6-8.9); Platelet Count 285 K/mcL (140-400); Red Blood Count 3.65 M/mcL (3.82-4.97); Red Cell Distribution Width 13.9 % (11.5-14.5); Segmented Neutrophils % 49.2 %
[2017-01-06 05:52] LABS: INR 2.5; Prothrombin Time 27.7 Seconds (9.4-12.1)
[2017-01-06 05:57] LABS: BUN/Creatinine Ratio 19 (6-26); Blood Urea Nitrogen 15 mg/dL (7-20); Calcium 8.3 mg/dL (8.6-10.8); Carbon Dioxide 27 mEq/L (19-29); Chloride 109 mEq/L (98-109); Glucose 89 mg/dL (70-99); Osmolality,Calculated 290 (280-300); Potassium 4.1 mEq/L (3.5-4.5); Sodium 140 mEq/L (136-145); eGFR For African Americans > 60 (> 60); eGFR For Non-African Americans > 60 (> 60)
[2017-01-06] MEDS: Lactobacillus 1 EACH CAP.SPRINK PO SCH (07:42)
[2017-01-06] MEDS: Levofloxacin 750 MG/150 ML 750 MG/150 ML BAG IVPB SCH (07:42)
[2017-01-06] MEDS: Multivit/Ca/Min/Fe/FA 1 TAB TABLET PO SCH (07:42)
[2017-01-06] MEDS: Aspirin Enteric Coated 81 MG Tablet PO SCH (07:42)
[2017-01-06] MEDS: Ascorbic Acid 500 MG TABLET PO SCH (07:43)
[2017-01-06] MEDS: Folic Acid 1 MG TABLET PO SCH (07:43)
[2017-01-06] MEDS: Clindamycin 300 MG in D5% in Water 50 ML IVPB SCH ×2 (07:58→17:00)
[2017-01-06] MEDS ORDERED: *HR* HYDROmorphone (PF) 1 MG/ML SYRINGE IVP PRN (09:13)
--- NOTE | 2017-01-06 09:15 | Internal Med Progress Note ---
Date of Encounter: 01/06/17 Time of Encounter: 09:14 - Assessment and plan (1) Cellulitis of right lower extremity Current Visit: Yes Status: Acute Assessment and plan: Cellulitis is suspected, due to tenderness and swelling, CT scan confirms mild skin thickening ad subcutaneous edema/inflammation Continue Levaquin and Clindamycin Orthoedic eval appreciated, states likely acute myofascial injury. Continue pain control (2) Status post total hip replacement, right Current Visit: Yes Status: Chronic Assessment and plan: Continue pain control. PT per ortho. Pain control. INR is therapeutic, EPCDs as tolerated (3) GERD (gastroesophageal reflux disease) Current Visit: Yes Status: Chronic Assessment and plan: Continue home meds Qualifiers: Esophagitis presence: esophagitis presence not specified Qualified Code(s) : K21.9 - Gastro-esophageal reflux disease without esophagitis (4) Depression Current Visit: Yes Status: Chronic Assessment and plan: Continue home meds Qualifiers: Depression Type: unspecified Qualified Code(s): F32.9 - Major depressive disorder, single episode, unspecified (5) HTN (hypertension) Current Visit: Yes Status: Chronic Assessment and plan: Mostly controlled, continue home meds Qualifiers: Hypertension type: essential hypertension Qualified Code(s): I10 - Essential (primary) hypertension (6) COPD (chronic obstructive pulmonary disease) Current Visit: Yes Status: Chronic Assessment and plan: Not in exacerbation, duonebs prn Qualifiers: COPD type: unspecified COPD Qualified Code(s): J44.9 - Chronic obstructive pulmonary disease, unspecified (7) History of DVT (deep vein thrombosis) Current Visit: Yes Status: Chronic Assessment and plan: INR 4.8 on admission, 2.5 today Resume Coumadin Dose with INR - Subjective Interval history: Seen and evaluated at bedside 76 F with multiple co-morbidities, recent hip arthroplasty, admitted for suspected cellulitis around op-site CT scan ruled out any joint collection, joint is in place Orthopedics eval noted Patient reports pain is improving, no new complains - Constitutional Vitals: Temp Pulse Resp BP Pulse Ox 98 F 64 16 129/78 99 01/06/17 06:52 01/06/17 06:52 01/06/17 06:52 01/06/17 06:52 01/06/17 06:52 General appearance: Present: cooperative, A&O X 3, pleasant, no acute distress, answers questions appropriately - Head Head exam: Present: atraumatic, normocephalic - Eye Eye exam: Present: PERRL, conjuntiva pink, sclera anicteric Pupils: Present: PERRL - Neck Neck exam general surgery: Present: supple, trachea midline. Absent: lymphadenopathy - Respiratory Respiratory exam: Present: CTAB. Absent: accessory muscle use, rales, rhonchi, wheezes Additional comments: L chest wall port - Cardiovascular Cardiovascular exam: Present: RRR, +S1, +S2. Absent: diastolic murmur, gallop, rubs, systolic murmur - GI/Abdominal GI/Abdominal exam: Present: normal bowel sounds, soft, no peritoneal signs. Absent: distended, tenderness - Extremities Exam Extremities exam: Present: warm, radial pulses palpable and symmetrical. Absent : calf tenderness, cyanotic, pedal edema Additional comments: R hip incision site clean and dry, with some surrounding edema, improved from prior exam. no distinct erythema. mildly tender Distal part of extremity is well vascularized LLE with chronic venous stasis changes - Neurological Exam Neurological exam: Present: alert, CN II-XII intact, oriented X3, no focal deficits. Absent: pronater drift, facial droop, speech deficit - Skin Skin exam: Present: dry Internal Medicine: Result - Labs CBC & Chem 7: 01/06/17 05:30 01/06/17 05:30 Labs: Short CBC 01/06/17 Range/Units 05:30 WBC 3.8 L (4.3-11.1) K/mcL Hgb 11.1 L (11.5-15.4) g/dL Hct 34.1 L (35.3-44.9) % Plt Count 285 (140-400) K/mcL Neutrophils # 1.9 (1.6-8.9) K/mcL BMP 01/06/17 05:30 Sodium 140 Potassium 4.1 Chloride 109 Carbon Dioxide 27 BUN 15 Creatinine 0.78 Glucose 89 Calcium 8.3 L - ABG Interpretation ABG results: PT/INR, D-dimer PT 27.7 Seconds (9.4-12.1) H 01/06/17 05:30 - VTE Reasons for not Prescribing Prophylaxis: Not indicated-Anticoagulated or INR therapeutic Documentation of Mechanical Device: Intermittent pneumatic compression device Consult Discharge Plan - Plan Referrals: Mary Ortiz, UTILIZATION MANAGEMENT RN [Primary Care Provider] -
--- NOTE | 2017-01-06 10:28 | Orthopedics Progress Note ---
Date of Encounter: 01/06/17 Time of Encounter: 10:26 - Assessment and Plan (1) Pain in right leg Current Visit: No Status: Chronic (2) Status post total hip replacement, right Current Visit: Yes Status: Chronic No signs of active infection. Patient's pain seems to be related to muscular strain of the hip abductors. With the elevated INR at admission, she may have had some bleeding into the muscle. Patient's INR is therapeutic now. I recommend warm compresses. Continue physical therapy with total hip precautions. Patient to be discharged once appropriate Coumadin level is managed. She has a follow-up appointment with Dr. Mix on January 09. Subjective Principal diagnosis: Status post right total hip arthroplasty, right hip pain Interval history: Patient's pain is improving. She states ice packs being placed on her toes causing the pain to worsen. On physical exam: Right hip incision is fully healed, no draining, no swelling, no erythema, some mild induration skin with mild bruising. No warmth to touch, no crepitus. Patient has good range of motion of the hip. She will to bear full weight without discomfort. She is tender along the hip abductors. Pain is worsened when standing and lifting left leg. Bilateral calves are soft and nontender. Neurovascular intact distally. Objective Vital signs: Vital Signs Temp Pulse Resp BP Pulse Ox 01/06/17 06:52 98 F 64 16 129/78 99 01/06/17 03:14 97.8 F 66 18 133/75 98 01/05/17 23:43 97.8 F 109 20 140/76 97 01/05/17 19:23 97.8 F 85 19 130/70 97 01/05/17 15:29 97.8 F 82 18 127/70 97 01/05/17 10:49 97.9 F 94 19 125/70 94 Intake and Output 01/05/17 01/06/17 01/06/17 23:59 07:59 15:59 Intake Total 350 / 350 50 / 50 Output Total 850 / 850 600 / 600 Balance -500 / -500 -550 / -550 Intake: IV Fluids 50 / 50 50 / 50 Cleocin 300 MG In Dextrose 5% 50 / 50 50 / 50 50 ML @ 50 mls/hr IVPB Q8HR [facility] Rx#:[id number] Oral 300 / 300 Output: Urine 850 / 850 600 / 600 Other: Meal Dinner Percent of Meal Consumed 75% # Voids 1 1 1 Incision: clean and dry - Labs CBC & BMP: 01/06/17 05:30 01/06/17 05:30 Labs: Abnormal lab results WBC 3.8 K/mcL (4.3-11.1) L 01/06/17 05:30 RBC 3.65 M/mcL (3.82-4.97) L 01/06/17 05:30 Hgb 11.1 g/dL (11.5-15.4) L 01/06/17 05:30 Hct 34.1 % (35.3-44.9) L 01/06/17 05:30 MPV 9.0 fL (9.4-12.4) L 01/06/17 05:30 PT 27.7 Seconds (9.4-12.1) H 01/06/17 05:30 Calcium 8.3 mg/dL (8.6-10.8) L 01/06/17 05:30 Serum Total Protein 5.9 g/dL (6.0-8.3) L 01/05/17 04:43 Albumin 2.9 g/dL (3.5-5.0) L 01/05/17 04:43 Albumin/Globulin Ratio 1.0 (1.1-2.2) L 01/05/17 04:43 - VTE Reasons for not Prescribing Prophylaxis: Not indicated-Anticoagulated or INR therapeutic Documentation of Mechanical Device: Intermittent pneumatic compression device Consult Discharge Plan - Plan Referrals: Mary Ortiz CHILD AND FAMILY SERVICES SPECIALIST [Primary Care Provider] -
[2017-01-06] MEDS: MOM Conc 10 ML UD.LIQ PO PRN (15:34)
[2017-01-06] MEDS ORDERED: *HR* Warfarin 5 MG TABLET PO SCH (18:00)
[2017-01-06] MEDS: Sennosides/Docusate Sodium TABLET PO SCH (21:28)
[2017-01-07] MEDS: *HR* HYDROcodone/Acet 5/325 mg TABLET PO PRN (00:36)
[2017-01-07] MEDS: Clindamycin 300 MG in D5% in Water 50 ML IVPB SCH ×2 (01:09→10:00)
[2017-01-07 05:04] LABS: INR 1.8
--- NOTE | 2017-01-07 07:03 | Orthopedics Progress Note ---
Date of Encounter: 01/07/17 Time of Encounter: 07:03 - Assessment and Plan (1) Status post total hip replacement, right Current Visit: Yes Status: Chronic s/p Right THR 12/12/16 Admitted over the weekend for Right hip pain, elevated INR. Overall, patient is doing well. Complaining of pain to Right greater trochanteric region. Patient ambulating with assistance well, pain radiates into knee and lower leg. Right Hip: No evidence of infection. Unable to take NSAIDS secondary to anti-coagulation. Will plan to start Medrol dose pack for inflammatory control at discharge. Stable for D/C from orthopedic standpoint. F/up set in office on 01/09 with . in agreement with above plan. Subjective Principal diagnosis: Status post right total hip arthroplasty, right hip pain Interval history: Patient well known to orthopedic practice: s/p Right THR 12/12/16 Admitted over the weekend for Right hip pain, elevated INR. Overall, patient is doing well. Complaining of pain to Right greater trochanteric region. Patient ambulating with assistance well, pain radiates into knee and lower leg. Right Hip: Incision: Well healed, no erythema, drainage or evidence of infection. Tenderness to greater trochanteric region and ITB. No calf erythema or redness. ROM limited but within norm for post-op week 4 recovery. Objective Vital signs: Vital Signs Temp Pulse Resp BP Pulse Ox 01/07/17 04:37 97.7 F 80 17 126/85 96 01/07/17 00:35 97.5 F L 75 15 147/86 97 01/06/17 18:52 98.0 F 79 18 134/73 99 01/06/17 15:34 98.1 F 74 20 124/74 97 01/06/17 10:04 98.1 F 68 16 134/73 97 Intake and Output 01/06/17 01/06/17 01/07/17 15:59 23:59 07:59 Intake Total 402 / 402 410 / 410 Output Total 700 / 700 0 / 0 Balance -298 / -298 410 / 410 Intake: IV Fluids 50 / 50 Cleocin 300 MG In Dextrose 5% 50 / 50 50 ML @ 50 mls/hr IVPB Q8HR [facility] Rx#:[id number] Oral 350 / 350 360 / 360 Output: Urine 700 / 700 0 / 0 Other: Meal Breakfast Dinner Percent of Meal Consumed 75% 100% # Voids 1 1 1 Weight 70.505 kg Patient Weight 01/07/17 23:59 Weight 70.505 kg Incision: healing, clean and dry - Diagnostic Results Hip x-ray: report reviewed, image reviewed - Labs CBC & BMP: 01/06/17 05:30 01/06/17 05:30 Labs: Abnormal lab results WBC 3.8 K/mcL (4.3-11.1) L 01/06/17 05:30 RBC 3.65 M/mcL (3.82-4.97) L 01/06/17 05:30 Hgb 11.1 g/dL (11.5-15.4) L 01/06/17 05:30 Hct 34.1 % (35.3-44.9) L 01/06/17 05:30 MPV 9.0 fL (9.4-12.4) L 01/06/17 05:30 PT 20.0 Seconds (9.4-12.1) H 01/07/17 04:50 Calcium 8.3 mg/dL (8.6-10.8) L 01/06/17 05:30 Serum Total Protein 5.9 g/dL (6.0-8.3) L 01/05/17 04:43 Albumin 2.9 g/dL (3.5-5.0) L 01/05/17 04:43 Albumin/Globulin Ratio 1.0 (1.1-2.2) L 01/05/17 04:43 - VTE Reasons for not Prescribing Prophylaxis: Not indicated-Anticoagulated or INR therapeutic Documentation of Mechanical Device: Intermittent pneumatic compression device Consult Discharge Plan - Plan Referrals: Mary Ortiz COPIER AND PRINTER FIELD TECHNICIAN [Primary Care Provider] -
[2017-01-07] MEDS ORDERED: Levofloxacin 750 MG/150 ML 750 MG/150 ML BAG IVPB SCH (09:00)
[2017-01-07] MEDS: Folic Acid 1 MG TABLET PO SCH (09:55)
[2017-01-07] MEDS: Lactobacillus 1 EACH CAP.SPRINK PO SCH (09:55)
[2017-01-07] MEDS: Multivit/Ca/Min/Fe/FA 1 TAB TABLET PO SCH (09:56)
[2017-01-07] MEDS: Aspirin Enteric Coated 81 MG Tablet PO SCH (09:56)
[2017-01-07 10:01] LABS: Basophils % 0.7 %; Eosinophils # 0.4 K/mcL (0.0-0.6); Eosinophils % 7.9 %; Hematocrit 37.1 % (35.3-44.9); Hemoglobin 12.3 g/dL (11.5-15.4); Immature Granulocytes % 0.2 % (0-4); Lymphocytes # 0.5 K/mcL (0.6-4.6); Lymphocytes % 11.8 %; Mean Corpuscular HGB Conc 33.2 g/dL (31.6-35.5); Mean Corpuscular Hemoglobin 30.5 pg (28.0-33.3); Mean Corpuscular Volume 92.1 fL (83.0-100.0); Mean Platelet Volume 8.8 fL (9.4-12.4); Monocytes # 0.4 K/mcL (0.0-1.3); Monocytes % 9.3 %; Neutrophils # 3.1 K/mcL (1.6-8.9); Platelet Count 266 K/mcL (140-400); Red Blood Count 4.03 M/mcL (3.82-4.97); Red Cell Distribution Width 13.9 % (11.5-14.5); Segmented Neutrophils % 70.1 %
[2017-01-07] MEDS: Ascorbic Acid 500 MG TABLET PO SCH (10:01)
[2017-01-07 10:14] LABS: BUN/Creatinine Ratio 13 (6-26); Blood Urea Nitrogen 11 mg/dL (7-20); Calcium 8.8 mg/dL (8.6-10.8); Carbon Dioxide 26 mEq/L (19-29); Chloride 107 mEq/L (98-109); Glucose 76 mg/dL (70-99); Osmolality,Calculated 290 (280-300); Potassium 3.6 mEq/L (3.5-4.5); Sodium 141 mEq/L (136-145); eGFR For African Americans > 60 (> 60); eGFR For Non-African Americans > 60 (> 60)
[2017-01-07 10:57] VITALS: BP 139/76
--- NOTE | 2017-01-07 14:30 | Discharge Summary ---
<Beverley Rodríguez - Last Filed: 01/07/17 14:27> Date of Encounter: 01/07/17 Time of Encounter: 11:00 - Discharge Diagnosis (1) Cellulitis of right lower extremity Priority: Primary Status: Acute (2) Status post right hip replacement Priority: Secondary Status: Acute (3) HTN (hypertension) Priority: Secondary Status: Chronic Qualifiers: Hypertension type: essential hypertension Qualified Code(s): I10 - Essential (primary) hypertension (4) COPD (chronic obstructive pulmonary disease) Priority: Secondary Status: Chronic Qualifiers: COPD type: unspecified COPD Qualified Code(s): J44.9 - Chronic obstructive pulmonary disease, unspecified (5) GERD (gastroesophageal reflux disease) Priority: Secondary Status: Chronic Qualifiers: Esophagitis presence: esophagitis presence not specified Qualified Code(s) : K21.9 - Gastro-esophageal reflux disease without esophagitis (6) Depression Priority: Secondary Status: Chronic Qualifiers: Depression Type: unspecified Qualified Code(s): F32.9 - Major depressive disorder, single episode, unspecified (7) History of DVT (deep vein thrombosis) Priority: Secondary Status: Chronic - Discharge Medications Prescriptions: Clindamycin HCl [Cleocin HCl] 300 mg PO TID #12 capsule levoFLOXacin [Levaquin] 750 mg PO DAILY #4 tablet methylPREDNISolone [Medrol] 4 mg PO DAILY #21 tablet Home Medications: Ascorbic Acid [Vitamin C] 500 mg PO DAILY 01/26/15 [History] Docusate [Colace] 200 mg PO BID 01/26/15 [History] Folic Acid 0.8 mg PO DAILY 01/26/15 [History] Vitamin B Complex [B Complex] 1 tab PO DAILY 01/26/15 [History] Vitamin D3/Folic Acid [Ortho D 3,775 Unit-1 mg Cap] 1 tab PO DAILY 01/26/15 [ History] Vitamin E (Dl,Tocopheryl Acet) [Vitamin E] 100 unit PO DAILY 01/26/15 [History] Calcium Carbonate [Calcium] 600 mg PO DAILY 10/18/15 [History] Duloxetine HCl [Cymbalta] 60 mg PO BID 10/18/15 [History] Pantoprazole Sodium [Protonix] 40 mg PO DAILY 10/18/15 [History] Metoprolol [Lopressor] 25 mg PO BID 11/05/16 [History] Nystatin POWDER [Nystop] 1 appl TP BID PRN 11/05/16 [History] hydrOXYzine HCl [Hydroxyzine HCl] 25 mg PO TID PRN 11/05/16 [History] Aspirin [Lo-Dose Aspirin EC] 81 mg PO DAILY 12/12/16 [History] Multivitamin [One Daily Multivitamin] 1 each PO DAILY 12/12/16 [History] Zinc Amino Acid Chelate [Zinc Chelated] 50 mg PO DAILY 12/12/16 [History] HYDROcodone/Acet 5/325 mg [[place] 5-325 mg] 1 tab PO HS 01/04/17 [History] L. Acidophilus/Bifid. Animalis [Dialyvite Chewable Probiotic] 2 each PO DAILY [History] Sennosides/Docusate Sodium [Senna Plus] 1 each PO HS 01/04/17 [History] Warfarin [Coumadin] 10 mg PO Q72H 01/04/17 [History] Clindamycin HCl [Cleocin HCl] 300 mg PO TID #12 capsule 01/07/17 [Rx] levoFLOXacin [Levaquin] 750 mg PO DAILY #4 tablet 01/07/17 [Rx] methylPREDNISolone [Medrol] 4 mg PO DAILY #21 tablet 01/07/17 [Rx] Allergies/Adverse Reactions: 3 Allergy/AdvReac Type Severity Reaction Status Date / Time acetaminophen AdvReac CONSTIPATIO Verified 12/12/16 10:05 [From Darvocet-N] N caffeine AdvReac Shakiness Verified 12/12/16 10:05 cefazolin [From Ancef] AdvReac Difficulty Verified 12/12/16 10:05 Breathing codeine AdvReac Rash Verified 12/12/16 10:05 Erythromycin Base AdvReac Rash Verified 12/12/16 10:05 Hydromorphone [From Dilaudid] AdvReac Itching Verified 11/05/16 00:57 lactose AdvReac Abdominal Verified 11/05/16 00:57 Pain latex AdvReac Rash Verified 12/12/16 10:05 Oxycodone [From Percocet] AdvReac CONSTIPATIO Verified 12/12/16 10:05 N Penicillins AdvReac Rash Verified 12/12/16 10:05 Procaine AdvReac Dizziness Verified 12/12/16 10:05 propoxyphene AdvReac CONSTIPATIO Verified 12/12/16 10:05 [From Darvocet-N] N Sulfa (Sulfonamide AdvReac Hives Verified 12/12/16 10:05 Antibiotics) theophylline [From Emiliano-Dur] AdvReac Difficulty Verified 12/12/16 10:05 Breathing tramadol AdvReac Rash Verified 11/05/16 00:57 Date of admission: 01/05/17 03:07 Primary care physician: Mary Ortiz CNP Consults: 01/05/17 09:09 Consult to Physical Therapy [CONS] Stat Comment: Evaluate, develop and implement POC Reason for Consult: s/p R hip arthroplasty 01/07/17 09:51 Consult to Manager Mining [CONS] Routine Reason for SW Consult: financial problems with medication prescriptions - Patient Status Disposition: Home, Self-Care Condition: Good Functional capacity at discharge: independent ambulation Overall status at discharge: patient is progressing back to baseline - Discharge Instructions Follow Up With: Mary Ortiz CNP [Primary Care Provider] - 01/14/17 10:30 am (Please follow up with your primary care provider) Abraham Mix MD [Partnered Physician] - 01/09/17 (previously scheduled) Additional Instructions: Please follow-up with Dr. Mix at her already scheduled office appointment on 01/09/2017. Please continue to take your full course of antibiotics. You are being given a prescription for 4 more days of Levaquin and clindamycin. Continue with warm compresses to your hip. If you develop any severe worsening of your pain, high fevers, or nausea and vomiting, please return to the emergency department immediately. - Diet and Activity Activity: increase activity as tolerated Diet: advance to your usual diet, low fat, low cholesterol Hospital course: Ms. Kimball is a 76 year old female with past medical history asthma, cancer, COPD, CVA, DVT, fibromyalgia, hypertension, and kidney stones. She presented to the emergency department complaining of right sided lower extremity pain and edema. She was status post a right total hip arthroplasty 2 weeks prior. Initial evaluation in the ER involved a CT of the lower extremity to rule out hematoma and abscess. The only abnormality was some localized edema and inflammation consistent with cellulitis. Patient was admitted for treatment as she stated her pain was unbearable. Upon admission to the hospital, blood cultures were sent and IV vancomycin and Levaquin were started. Orthopedics was immediately consult to rule out a septic joint. Patient was on chronic Coumadin therapy prior to hospitalization. She was found to have a supratherapeutic INR after which Coumadin was temporarily discontinued. Her INR eventually stabilized and Coumadin was resumed on 01/06/2017. Orthopedics evaluated the patient and deemed her pain most likely related to muscular strain of her hip abductors. There were no signs of active infection during her hospitalization. Patient's pain continued to improve with warm compresses and ice pack. Patient's Levaquin was continued throughout her hospitalization and vancomycin was changed to clindamycin. Patient received 3 doses each of clindamycin and Levaquin. She will be discharged home with a 4 day prescription for both, totaling a 7 day course of antibiotics. Patient was stable for discharge this morning, and happily resting comfortably. She felt comfortable with the plan for discharge. All questions were answered. - Time Spent with Patient Total time spent providing and/or coordinating discharge services: Greater than 30 minutes (40 minutes) - Constitutional Vitals: Temp Pulse Resp BP Pulse Ox 97.8 F 86 16 139/76 97 01/07/17 10:45 01/07/17 10:45 01/07/17 10:45 01/07/17 10:45 01/07/17 10:45 General appearance: Present: cooperative, A&O X 3, pleasant, no acute distress, answers questions appropriately - Respiratory Respiratory exam: Present: CTAB. Absent: accessory muscle use, rales, rhonchi, wheezes - Cardiovascular Cardiovascular exam: Present: RRR, +S1, +S2. Absent: diastolic murmur, gallop, rubs, systolic murmur - GI/Abdominal GI/Abdominal exam: Present: normal bowel sounds, soft, no peritoneal signs. Absent: distended, tenderness - Extremities Exam Extremities exam: Present: warm, radial pulses palpable and symmetrical. Absent : calf tenderness, cyanotic, pedal edema Additional comments: There was an approximately 7 cm incision over the lateral surface of patient's right hip. This was clean dry and intact. There is no surrounding erythema or edema. There is no streaking, crepitance, or induration. Patient had full range of motion of her hip. There were no focal neurological deficits upon examination of her bilateral lower extremities. - VTE Reasons for not Prescribing Prophylaxis: Not indicated-Anticoagulated or INR therapeutic Documentation of Mechanical Device: Intermittent pneumatic compression device <Dakota Millerrewsridhar Coleman - Last Filed: 01/07/17 16:37> Date of Encounter: 01/07/17 - Discharge Diagnosis (1) Cellulitis of right lower extremity Status: Acute (2) Status post total hip replacement, right Status: Chronic (3) GERD (gastroesophageal reflux disease) Status: Chronic Qualifiers: Esophagitis presence: esophagitis presence not specified Qualified Code(s) : K21.9 - Gastro-esophageal reflux disease without esophagitis (4) Depression Status: Chronic Qualifiers: Depression Type: unspecified Qualified Code(s): F32.9 - Major depressive disorder, single episode, unspecified (5) HTN (hypertension) Status: Chronic Qualifiers: Hypertension type: essential hypertension Qualified Code(s): I10 - Essential (primary) hypertension (6) COPD (chronic obstructive pulmonary disease) Status: Chronic Qualifiers: COPD type: unspecified COPD Qualified Code(s): J44.9 - Chronic obstructive pulmonary disease, unspecified (7) History of DVT (deep vein thrombosis) Status: Chronic Date of admission: 01/05/17 03:07 Primary care physician: Mary Ortiz CNP Consults: 01/05/17 09:09 Consult to Physical Therapy [CONS] Stat Comment: Evaluate, develop and implement POC Reason for Consult: s/p R hip arthroplasty 01/07/17 09:51 Consult to Manager Mining [CONS] Routine Reason for SW Consult: financial problems with medication prescriptions Hospital course: Ms. Kimball is a 76 year old female - Time Spent with Patient Total time spent providing and/or coordinating discharge services: - Constitutional Vitals: Temp Pulse Resp BP Pulse Ox 97.8 F 86 16 139/76 97 01/07/17 10:45 01/07/17 10:45 01/07/17 10:45 01/07/17 10:45 01/07/17 10:45 - Attending Attestation I independently saw and examined this patient on 01/07/2017, I have reviewed her chart as well. Diagnoses and management plan was discussed with the patient, and the resident physician. 76 F with Depression/Anxiety/HTN/hx of DVT on Coumadin/GERD, s/p R hip arthroplasty was admitted following an acute onset of R hip maciel, diagnosed with acute myotic injury and cellulitis She is improved clinically and ambulatory with PT/OT. She has no new complains, she was seen and followed by orthopedics throughout her admission and there was no clinical or radiographic evidence of hematoma collection or implant infection Exam is unremarkable Labs: CBC WNL, Chem WNL Stable for discharge home, complete 3 more days of antibiotics INR is 1.8, resume home doses of Coumadin and follow up with Orthopedics and PCP Rest of details as in resident physician's documentation
== END 2017-01-07 15:54 | disposition home or self-care (01) | DRG 603 ==
LOC: EMEROO 18:18 → 3NENU 18:18 → 3ANU 01-06 14:50 → 3NENU 01-07 10:36
PROVIDERS: ADMIT Pediatrics; ATTEND Internal Medicine

== ENCOUNTER 2017-10-31 12:18 | Observation (INO) ==
[2017-10-31] MEDS ORDERED: *HR* HYDROcodone/Acet 10/325 mg TABLET PO ONE (12:31)
[2017-10-31 12:53] LABS: Basophils # 0.1 K/mcL (0.0-0.2); Basophils % 0.8 %; Eosinophils # 0.2 K/mcL (0.0-0.6); Eosinophils % 3.9 %; Hematocrit 38.6 % (35.3-44.9); Immature Granulocytes % 0.5 % (0-4); Lymphocytes # 0.7 K/mcL (0.6-4.6); Lymphocytes % 12.1 %; Mean Corpuscular HGB Conc 33.7 g/dL (31.6-35.5); Mean Corpuscular Hemoglobin 31.9 pg (28.0-33.3); Mean Corpuscular Volume 94.6 fL (83.0-100.0); Mean Platelet Volume 9.2 fL (9.4-12.4); Monocytes # 0.6 K/mcL (0.0-1.3); Monocytes % 9.6 %; Neutrophils # 4.4 K/mcL (1.6-8.9); Platelet Count 244 K/mcL (140-400); Red Blood Count 4.08 M/mcL (3.82-4.97); Segmented Neutrophils % 73.1 %
--- NOTE | 2017-10-31 12:54 | Emergency Department Note ---
Disposition Clinical Impression: Closed right hip fracture Qualifiers: Encounter type: initial encounter Qualified Code(s): S72.001A - Fracture of unspecified part of neck of right femur, initial encounter for closed fracture Disposition: Admitted As Inpatient Condition: Good Referrals: Mary Ortiz CNP [Primary Care Provider] - Lower Extremity Injury HPI - General Chief Complaint: ED Extremity Injury, Lower Stated Complaint: right hip injury Time Seen by Provider: 10/31/17 12:27 Source: EMS Limitations: physical limitation Nursing Notes Reviewed: Yes Vital Signs Reviewed: Yes - History of Present Illness HPI Narrative: Patient presents today via EMS for evaluation of right hip pain. Patient had right hip replacement by Dr. Mix last November. Has been doing well except for today when she was walking and felt a pop in her right hip. Patient was able to sit down in the nearest chair and did not fall or hit her head. She does take Coumadin. She has been unable to tolerate any movement of the right hip and has complained of pain with bumps in the road during travel. Pain to logroll as well as palpation of the greater trochanter. Neurovascularly intact distally to the right extremity with DP pulse +2 and sensation symmetric bilaterally there are chronic venous ulcers to left leg. - Related Data Home Medications Medication Instructions Recorded Confirmed Ascorbic Acid [Vitamin C] 500 mg PO DAILY 01/26/15 01/04/17 Docusate [Colace] 200 mg PO BID 01/26/15 01/04/17 Folic Acid 0.8 mg PO DAILY 01/26/15 01/04/17 Vitamin B Complex [B Complex] 1 tab PO DAILY 01/26/15 01/04/17 Vitamin D3/Folic Acid [Ortho D 1 tab PO DAILY 01/26/15 01/04/17 3,775 Unit-1 mg Cap] Vitamin E (Dl,Tocopheryl Acet) 100 unit PO DAILY 01/26/15 01/04/17 [Vitamin E] Calcium Carbonate [Calcium] 600 mg PO DAILY 10/18/15 01/04/17 Duloxetine HCl [Cymbalta] 60 mg PO BID 10/18/15 01/04/17 Pantoprazole Sodium [Protonix] 40 mg PO DAILY 10/18/15 01/04/17 Metoprolol [Lopressor] 25 mg PO BID 11/05/16 01/04/17 Nystatin POWDER [Nystop] 1 appl TP BID PRN 11/05/16 01/04/17 hydrOXYzine HCl [Hydroxyzine HCl] 25 mg PO TID PRN 11/05/16 01/04/17 Aspirin [Lo-Dose Aspirin EC] 81 mg PO DAILY 12/12/16 01/04/17 Multivitamin [One Daily 1 each PO DAILY 12/12/16 01/04/17 Multivitamin] Zinc Amino Acid Chelate [Zinc 50 mg PO DAILY 12/12/16 01/04/17 Chelated] HYDROcodone/Acet 5/325 mg [[place] 1 tab PO HS 01/04/17 01/04/17 5-325 mg] L. Acidophilus/Bifid. Animalis 2 each PO DAILY 01/04/17 01/04/17 [Dialyvite Chewable Probiotic] Sennosides/Docusate Sodium [Senna 1 each PO HS 01/04/17 01/04/17 Plus] Warfarin [Coumadin] 10 mg PO Q72H 01/04/17 01/04/17 Previous Rx's Medication Instructions Recorded Clindamycin HCl [Cleocin HCl] 300 mg PO TID #12 capsule 01/07/17 levoFLOXacin [Levaquin] 750 mg PO DAILY #4 tablet 01/07/17 methylPREDNISolone [Medrol] 4 mg PO DAILY #21 tablet 01/07/17 Benzonatate [Tessalon] 200 mg PO TID PRN #30 capsule 03/21/17 Guaifenesin [Mucinex] 600 mg PO BID #20 tab.er.12h 03/21/17 Levofloxacin [Levaquin] 500 mg PO DAILY #10 tablet 03/21/17 Ciprofloxacin [Cipro] 500 mg PO BID #20 tablet 10/14/17 predniSONE [PredniSONE] 0 mg PO DAILY #20 tablet 10/14/17 Allergies Allergy/AdvReac Type Severity Reaction Status Date / Time acetaminophen AdvReac CONSTIPATIO Verified 08/20/17 13:07 [From Darvocet-N] N caffeine AdvReac Shakiness Verified 08/20/17 13:07 cefazolin [From Ancef] AdvReac Difficulty Verified 08/20/17 13:07 Breathing codeine AdvReac Rash Verified 08/20/17 13:07 Erythromycin Base AdvReac Rash Verified 08/20/17 13:07 Hydromorphone [From Dilaudid] AdvReac Itching Verified 08/20/17 13:07 lactose AdvReac Abdominal Verified 08/20/17 13:07 Pain latex AdvReac Rash Verified 08/20/17 13:07 Oxycodone [From Percocet] AdvReac CONSTIPATIO Verified 08/20/17 13:07 N Penicillins AdvReac Rash Verified 08/20/17 13:07 Procaine AdvReac Dizziness Verified 08/20/17 13:07 propoxyphene AdvReac CONSTIPATIO Verified 08/20/17 13:07 [From Darvocet-N] N Sulfa (Sulfonamide AdvReac Hives Verified 08/20/17 13:07 Antibiotics) theophylline [From Emiliano-Dur] AdvReac Difficulty Verified 08/20/17 13:07 Breathing tramadol AdvReac Rash Verified 08/20/17 13:07 Review of Systems: CONSTITUTIONAL: No weight loss, fever, chills, weakness or fatigue. HEENT: No changes to vision SKIN: No rash or itching. CARDIOVASCULAR: No chest pain, chest pressure or chest discomfort. No palpitations or edema. RESPIRATORY: No shortness of breath, cough or sputum. GASTROINTESTINAL: No anorexia, nausea, vomiting or diarrhea. No abdominal pain GENITOURINARY: No burning on urination or hematuria. NEUROLOGICAL: No headache dizziness or syncope MUSCULOSKELETAL: Right hip pain Past Medical History - Past Medical History Medical history: Reports: asthma, cancer, COPD, CVA, fibromyalgia, hypertension , kidney stones, other Surgical history: Reports: non-contributory, hysterectomy Psychiatric history: Reports: anxiety, depression [employer]IL CAR [employer]/S[employer] history: Reports: non-contributory - Social History Smoking Status: Never smoker Smokeless Tobacco Status: No Alcohol use: Reports: none Drug use: Reports: none Physical Exam General appearance: NAD, conversant Eyes: anicteric sclerae, moist conjunctivae; no lid-lag; PERRL HENT: Atraumatic; oropharynx clear with moist mucous membranes Neck: Normal appearance; Trachea midline Chest: Symmetrical chest rise; No respiratory distress Regular rhythm, clear to auscultation bilaterally Extremities: Tenderness to palpation of the right greater trochanter, positive logroll to the right leg, +2 dorsalis pedis bilaterally; sensation to light touch intact without deficit Skin: Normal temperature, turgor and texture; no rash, ulcers or subcutaneous nodules Psych: Appropriate mood and affect Neuro: Awake and alert - General Limitations: physical limitation General appearance: alert, in no apparent distress Course - Reevaluation(s) Reevaluation #1: Patient with right hip fracture. She was attempted to be ambulated. Patient unable to sit at the side of the bed without significant increasing her pain. She did attempt to stand on the right leg but cause pain to be 10 out of 10. She did not want to stay in the hospital but physically is unable to go home. She lives with who has Parkinson's and has difficulty taking care of himself. - Consultations Consultation #1: Discussed with Dr. Mix, orthopedic surgeon, patient likely nonoperative. If patient can tolerate ambulation she can go home. Consultation #2: Discussed with hospitalist. Patient unable to ambulate with right hip fracture. Needs admitted for further evaluation. Patient accepted the hospitalist. Vital Signs Temperature 97.8 F 10/31/17 12:20 Pulse Rate 72 10/31/17 12:20 Respiratory Rate 15 10/31/17 12:20 Blood Pressure 129/88 10/31/17 12:20 O2 Sat by Pulse Oximetry 96 10/31/17 12:20 Temperature 97.8 F 10/31/17 12:20 Pulse Rate 71 10/31/17 14:19 Respiratory Rate 15 10/31/17 12:20 Blood Pressure 129/74 10/31/17 14:19 O2 Sat by Pulse Oximetry 98 10/31/17 14:19 Oxygen Delivery Oxygen Delivery Room Air Extremity Injury, Lower - Lab Data Result diagrams: 10/31/17 12:38 10/31/17 12:38 Lab Results 10/31/17 10/31/17 10/31/17 Range/Units 12:38 12:38 12:38 WBC 6.0 (4.3-11.1) K/mcL RBC 4.08 (3.82-4.97) M/mcL Hgb 13.0 (11.5-15.4) g/dL Hct 38.6 (35.3-44.9) % MCV 94.6 (83.0-100.0) fL MCH 31.9 (28.0-33.3) pg MCHC 33.7 (31.6-35.5) g/dL RDW 14.0 (11.5-14.5) % Plt Count 244 (140-400) K/mcL MPV 9.2 L (9.4-12.4) fL Immature Gran % 0.5 (0-4) % Seg Neutrophils % 73.1 % Lymphocytes % 12.1 % Monocytes % 9.6 % Eosinophils % 3.9 % Basophils % 0.8 % Neutrophils # 4.4 (1.6-8.9) K/mcL Lymphocytes # 0.7 (0.6-4.6) K/mcL Monocytes # 0.6 (0.0-1.3) K/mcL Eosinophils # 0.2 (0.0-0.6) K/mcL Basophils # 0.1 (0.0-0.2) K/mcL PT 30.9 H (9.4-12.1) Seconds INR 2.7 Sodium 139 (136-145) mEq/L Potassium 4.1 (3.5-5.1) mEq/L Chloride 106 (98-107) mEq/L Carbon Dioxide 28 (23-29) mEq/L BUN 11 (8-23) mg/dL Creatinine 0.76 (0.60-1.20) mg/dL Est GFR ( Amer) > 60 (> 60) Est GFR (Non-Af Amer) > 60 (> 60) BUN/Creatinine Ratio 14 (6-26) Glucose 96 (70-105) mg/dL Calculated Osmolality 287 (280-300) Calcium 9.1 (8.6-10.3) mg/dL
[2017-10-31 12:58] LABS: INR 2.7; Prothrombin Time 30.9 Seconds (9.4-12.1)
[2017-10-31 13:13] LABS: BUN/Creatinine Ratio 14 (6-26); Blood Urea Nitrogen 11 mg/dL (8-23); Calcium 9.1 mg/dL (8.6-10.3); Carbon Dioxide 28 mEq/L (23-29); Chloride 106 mEq/L (98-107); Glucose 96 mg/dL (70-105); Osmolality,Calculated 287 (280-300); Potassium 4.1 mEq/L (3.5-5.1); Sodium 139 mEq/L (136-145); eGFR For Non-African Americans > 60 (> 60)
[2017-10-31] MEDS ORDERED: Ketorolac 30 MG/ML VIAL IVP PRN (16:16)
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
--- NOTE | 2017-10-31 19:15 | Internal Med History&Physical ---
Date of Encounter: 10/31/17 Time of Encounter: 11:00 Internal Medicine - H&P: HPI Chief complaint: Right hip Admitted From: Home History of present illness: Patient is a 77-year-old female with past medical history significant for COPD and hypertension who presents to the ER on 10/31/17 after right hip pain. She reports of walking to the bathroom from the kitchen and hearing a loud pop with sudden onset of sharp pain in the right hip. Patient was brought to the ER for evaluation. In the ER, she was found to have a nondisplaced fracture of the tip of right great trochanter. She will be admitted to medical surgical floor for further evaluation. Past Med Surg Social Fam HX - Past Medical History Medical history: asthma, cancer, COPD, CVA, fibromyalgia, hypertension, kidney stones, other Additional medical history: lupus Psychiatric history: anxiety, depression - Past Surgical History Surgical History: non-contributory, hysterectomy Additional surgical history: neck, back, uterine suspension x4, D & C x4, left mastectomy, a port right chest - Social History Smoking Status: Never smoker Smokeless Tobacco Status: No Alcohol use: none Drug use: none - Family History Father Living Status: Hx Family Cardiac Disorders: Yes Hx Family Cancer: Yes (prostate) Mother Family Member Ethnicity: Non- Living Status: Hx Family Cardiac Disorders: Yes Hx Family Respiratory Disorders: Yes Hx Family Cancer: Yes (rectal) Hx Family GI Disorders: No Hx Family Endocrine Disorder: No Hx Family Neuromuscular Disorders: No Hx Family Neurologic Disorders: No Hx Family HEENT Disorders: No Hx Family Autoimmune Disorders: No Brother Hx Family Cardiac Disorders: Yes ([place], Heart stents) Hx Family Respiratory Disorders: No Hx Family Cancer: Yes (colon) Hx Family GI Disorders: No Hx Family Endocrine Disorder: No Hx Family Neuromuscular Disorders: No Hx Family Neurologic Disorders: No Hx Family HEENT Disorders: No Hx Family Autoimmune Disorders: No Internal Medicine - H&P: Meds Ascorbic Acid [Vitamin C] 500 mg PO DAILY 01/26/15 [History] Docusate [Colace] 200 mg PO BID 01/26/15 [History] Folic Acid 0.8 mg PO DAILY 01/26/15 [History] Vitamin B Complex [B Complex] 1 tab PO DAILY 01/26/15 [History] Vitamin D3/Folic Acid [Ortho D 3,775 Unit-1 mg Cap] 1 tab PO DAILY 01/26/15 [ History] Vitamin E (Dl,Tocopheryl Acet) [Vitamin E] 100 unit PO DAILY 01/26/15 [History] Calcium Carbonate [Calcium] 600 mg PO DAILY 10/18/15 [History] Duloxetine HCl [Cymbalta] 60 mg PO BID 10/18/15 [History] Pantoprazole Sodium [Protonix] 40 mg PO DAILY 10/18/15 [History] Metoprolol [Lopressor] 25 mg PO BID 11/05/16 [History] Nystatin POWDER [Nystop] 1 appl TP BID PRN 11/05/16 [History] hydrOXYzine HCl [Hydroxyzine HCl] 25 mg PO TID PRN 11/05/16 [History] Aspirin [Lo-Dose Aspirin EC] 81 mg PO DAILY 12/12/16 [History] Multivitamin [One Daily Multivitamin] 1 each PO DAILY 12/12/16 [History] Zinc Amino Acid Chelate [Zinc Chelated] 50 mg PO DAILY 12/12/16 [History] HYDROcodone/Acet 5/325 mg [[place] 5-325 mg] 1 tab PO HS 01/04/17 [History] L. Acidophilus/Bifid. Animalis [Dialyvite Chewable Probiotic] 2 each PO DAILY [History] Sennosides/Docusate Sodium [Senna Plus] 1 each PO HS 01/04/17 [History] Warfarin [Coumadin] 10 mg PO Q72H 01/04/17 [History] Clindamycin HCl [Cleocin HCl] 300 mg PO TID #12 capsule 01/07/17 [Rx] levoFLOXacin [Levaquin] 750 mg PO DAILY #4 tablet 01/07/17 [Rx] methylPREDNISolone [Medrol] 4 mg PO DAILY #21 tablet 01/07/17 [Rx] Benzonatate [Tessalon] 200 mg PO TID PRN #30 capsule 03/21/17 [Rx] Guaifenesin [Mucinex] 600 mg PO BID #20 tab.er.12h 03/21/17 [Rx] Levofloxacin [Levaquin] 500 mg PO DAILY #10 tablet 03/21/17 [Rx] Ciprofloxacin [Cipro] 500 mg PO BID #20 tablet 10/14/17 [Rx] predniSONE [PredniSONE] 0 mg PO DAILY #20 tablet 10/14/17 [Rx] 3 Allergy/AdvReac Type Severity Reaction Status Date / Time acetaminophen AdvReac CONSTIPATIO Verified 08/20/17 13:07 [From Darvocet-N] N caffeine AdvReac Shakiness Verified 08/20/17 13:07 cefazolin [From Ancef] AdvReac Difficulty Verified 08/20/17 13:07 Breathing codeine AdvReac Rash Verified 08/20/17 13:07 Erythromycin Base AdvReac Rash Verified 08/20/17 13:07 Hydromorphone [From Dilaudid] AdvReac Itching Verified 08/20/17 13:07 lactose AdvReac Abdominal Verified 08/20/17 13:07 Pain latex AdvReac Rash Verified 08/20/17 13:07 Oxycodone [From Percocet] AdvReac CONSTIPATIO Verified 08/20/17 13:07 N Penicillins AdvReac Rash Verified 08/20/17 13:07 Procaine AdvReac Dizziness Verified 08/20/17 13:07 propoxyphene AdvReac CONSTIPATIO Verified 08/20/17 13:07 [From Darvocet-N] N Sulfa (Sulfonamide AdvReac Hives Verified 08/20/17 13:07 Antibiotics) theophylline [From Emiliano-Dur] AdvReac Difficulty Verified 08/20/17 13:07 Breathing tramadol AdvReac Rash Verified 08/20/17 13:07 All Systems PM: A 10-system review of systems was performed and is negative for pertinent findings except as documented above in the HPI. - Constitutional Vitals: Temp Pulse Resp BP Pulse Ox 97.7 F 70 18 122/76 97 10/31/17 14:39 10/31/17 14:39 10/31/17 14:39 10/31/17 14:39 10/31/17 14:39 General appearance: Present: A&O X 3, no acute distress - Eye Eye exam: Present: normal appearance, PERRL, conjuntiva pink, sclera anicteric Pupils: Present: PERRL - ENT ENT exam: Present: mucous membranes moist - Respiratory Respiratory exam: Present: CTAB. Absent: accessory muscle use, rales, rhonchi, wheezes - Cardiovascular Cardiovascular exam: Present: RRR, +S1, +S2. Absent: diastolic murmur, gallop, rubs, systolic murmur - GI/Abdominal GI/Abdominal exam: Present: normal bowel sounds, soft, no peritoneal signs. Absent: distended, tenderness - Extremities Exam Extremities exam: Absent: pedal edema - Neurological Exam Neurological exam: Present: oriented X3 - Psychiatric Psychiatric exam: Present: normal mood - Skin Skin exam: Present: normal color Internal Med - H&P Results - Labs CBC & Chem 7: 10/31/17 12:38 10/31/17 12:38 - Assessment and plan (1) Closed right hip fracture Current Visit: Yes Status: Acute Assessment and plan: Orthopedics consulted with nonoperative nondisplaced fracture of tip of right greater trochanter Recommendations for rehabilitation Physical therapy consulted for recommendations Qualifiers: Encounter type: initial encounter Qualified Code(s): S72.001A - Fracture of unspecified part of neck of right femur, initial encounter for closed fracture (2) COPD (chronic obstructive pulmonary disease) Current Visit: No Status: Chronic Assessment and plan: Continue home medication Qualifiers: COPD type: unspecified COPD Qualified Code(s): J44.9 - Chronic obstructive pulmonary disease, unspecified (3) DVT prophylaxis Current Visit: No Status: Acute Assessment and plan: SCDs - Time Spent With Patient Total time spent is greater than 50% in coordination of care (as documented) at patient's floor/unit and/or counseling patient:
[2017-10-31] MEDS ORDERED: Naloxone 0.4 MG/ML INJ IVP PRN (19:26)
[2017-10-31] MEDS ORDERED: VITAMIN E PO SCH (21:00)
[2017-10-31] MEDS ORDERED: ORTHO D PO SCH (21:00)
[2017-10-31] MEDS ORDERED: Nystatin POWDER 30 GM BOTTLE TP PRN (21:00)
[2017-10-31] MEDS ORDERED: hydrOXYzine pamoate 25 MG CAPSULE PO PRN (21:00)
[2017-10-31] MEDS ORDERED: Acetaminophen 325 MG TABLET PO PRN (21:06)
[2017-10-31] MEDS ORDERED: OXYCODONE Oral CONC 10 MG/0.5 ML ORAL.SYG SL PRN (21:38)
[2017-10-31] MEDS: Sennosides/Docusate Sodium TABLET PO SCH (22:22)
[2017-10-31] MEDS ORDERED: *HR* Warfarin 7.5 MG TABLET PO ONE (23:30)
[2017-11-01 05:53] LABS: Basophils % 0.5 %; Eosinophils # 0.2 K/mcL (0.0-0.6); Eosinophils % 3.9 %; Hematocrit 36.1 % (35.3-44.9); Hemoglobin 12.4 g/dL (11.5-15.4); Immature Granulocytes % 0.2 % (0-4); Lymphocytes # 0.8 K/mcL (0.6-4.6); Lymphocytes % 14.3 %; Mean Corpuscular HGB Conc 34.3 g/dL (31.6-35.5); Mean Corpuscular Hemoglobin 32.2 pg (28.0-33.3); Mean Corpuscular Volume 93.8 fL (83.0-100.0); Mean Platelet Volume 9.2 fL (9.4-12.4); Monocytes # 0.6 K/mcL (0.0-1.3); Monocytes % 9.6 %; Neutrophils # 4.2 K/mcL (1.6-8.9); Platelet Count 216 K/mcL (140-400); Red Blood Count 3.85 M/mcL (3.82-4.97); Segmented Neutrophils % 71.5 %
[2017-11-01 05:58] LABS: INR 2.7
[2017-11-01 06:16] LABS: BUN/Creatinine Ratio 15 (6-26); Blood Urea Nitrogen 11 mg/dL (8-23); Calcium 8.4 mg/dL (8.6-10.3); Carbon Dioxide 26 mEq/L (23-29); Chloride 105 mEq/L (98-107); Glucose 97 mg/dL (70-105); Osmolality,Calculated 283 (280-300); Potassium 3.7 mEq/L (3.5-5.1); Sodium 137 mEq/L (136-145); eGFR For Non-African Americans > 60 (> 60)
[2017-11-01] MEDS ORDERED: Ascorbic Acid 500 MG TABLET PO SCH (09:00)
[2017-11-01] MEDS ORDERED: ZINC AMINO ACID CHELATE PO SCH (09:00)
[2017-11-01] MEDS ORDERED: Vitamin B Complex/Vit C/Vit E 1 EACH TABLET PO SCH (09:00)
[2017-11-01] MEDS ORDERED: Aspirin Enteric Coated 81 MG Tablet PO SCH (09:00)
[2017-11-01] MEDS ORDERED: Folic Acid 1 MG TABLET PO SCH (09:00)
[2017-11-01] MEDS ORDERED: Multivit/Ca/Min/Fe/FA 1 TAB TABLET PO SCH (09:00)
[2017-11-01] MEDS: Sennosides/Docusate Sodium TABLET PO SCH (09:10)
[2017-11-01 10:52] VITALS: BP 125/76
--- NOTE | 2017-11-01 12:09 | Discharge Summary ---
- NOTES TO OUTPATIENT PROVIDER Notes to Outpatient Provider: Recommend routine hospital follow-up Orders not resulted at time of discharge: Pending orders 11/02/17 04:00 PT/INR [Prothrombin Time INR] [COAG] AM 0400 11/03/17 04:00 PT/INR [Prothrombin Time INR] [COAG] AM 0400 Date of Encounter: 11/01/17 Time of Encounter: 12:06 - Discharge Diagnosis (1) Closed right hip fracture Priority: Primary Status: Acute Qualifiers: Encounter type: initial encounter Qualified Code(s): S72.001A - Fracture of unspecified part of neck of right femur, initial encounter for closed fracture Hospital course: Ms. Kimball is a 77 year old female with H depression, DVT on Coumadin, history of breast cancer, COPD and right hip fracture presented to [facility] on 10/31/2017 with complaints of right hip pain. She was found to have an acute right hip fracture was placed in observation status for further workup and treatment and orthopedic evaluation. She is s/p R total hip replacement from 11/[address] Mix. Patient apparently reported hearing something pop in her right hip on day of arrival with subsequent pain therefore she came to the ED. She was found to have a nondisplaced fracture of the tip of the right trochanter. She was evaluated by orthopedics in the ED who recommended nonoperative management with modified weightbearing and walker. Evaluated by therapy recommended SNF at discharge however patient is adamantly refusing. 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 Says she has a walker at home and feels comfortable/safe being discharged. I had a lengthy discussion with the patient regarding my concern for discharge and patient continued to refuse SNF; she is not agreeable to stay overnight for continued therapy, she is insisting on being discharged today. She is able to ambulate with a walker. Still having some right hip pain but overall improved. No chest pain or shortness of breath. I advised patient that if the pain worsened or she got to the point where she was unable to ambulate to return to the ER as soon as possible. Patient verbalizes understanding. Patient is agreeable for [facility]. Will need to follow-up with Ortho outpatient. Discharge discussed with: patient - Time Spent with Patient Total time spent providing and/or coordinating discharge services: - Discharge Medications Prescriptions: OxyCODONE Immed Rel [Roxicodone 5 MG] 5 mg PO Q6HR PRN 7 Days #28 tablet PRN Reason: Pain Home Medications: Ascorbic Acid [Vitamin C] 500 mg PO DAILY 01/26/15 [History] Docusate [Colace] 200 mg PO BID 01/26/15 [History] Folic Acid 0.8 mg PO DAILY 01/26/15 [History] Vitamin B Complex [B Complex] 1 tab PO DAILY 01/26/15 [History] Vitamin D3/Folic Acid [Ortho D 3,775 Unit-1 mg Cap] 1 tab PO HS 01/26/15 [ History] Vitamin E (Dl,Tocopheryl Acet) [Vitamin E] 100 unit PO HS 01/26/15 [History] Calcium Carbonate [Calcium] 600 mg PO DAILY 10/18/15 [History] Duloxetine HCl [Cymbalta] 60 mg PO BID 10/18/15 [History] Pantoprazole Sodium [Protonix] 40 mg PO DAILY 10/18/15 [History] Metoprolol [Lopressor] 25 mg PO BID 11/05/16 [History] Nystatin POWDER [Nystop] 1 appl TP BID PRN 11/05/16 [History] hydrOXYzine HCl [Hydroxyzine HCl] 25 mg PO TID PRN 11/05/16 [History] Aspirin [Lo-Dose Aspirin EC] 81 mg PO DAILY 12/12/16 [History] Multivitamin [One Daily Multivitamin] 1 each PO DAILY 12/12/16 [History] Zinc Amino Acid Chelate [Zinc Chelated] 50 mg PO DAILY 12/12/16 [History] Sennosides/Docusate Sodium [Senna Plus] 1 each PO BID 01/04/17 [History] Warfarin [Coumadin] 7.5 mg PO DAILY 01/04/17 [History] OxyCODONE Immed Rel [Roxicodone 5 MG] 5 mg PO Q6HR PRN 7 Days #28 tablet [Rx] Allergies/Adverse Reactions: 3 Allergy/AdvReac Type Severity Reaction Status Date / Time acetaminophen AdvReac CONSTIPATIO Verified 08/20/17 13:07 [From Bashir-N] N caffeine AdvReac Shakiness Verified 08/20/17 13:07 cefazolin [From Ancef] AdvReac Difficulty Verified 08/20/17 13:07 Breathing codeine AdvReac Rash Verified 08/20/17 13:07 Erythromycin Base AdvReac Rash Verified 08/20/17 13:07 Hydromorphone [From Dilaudid] AdvReac Itching Verified 08/20/17 13:07 lactose AdvReac Abdominal Verified 08/20/17 13:07 Pain latex AdvReac Rash Verified 08/20/17 13:07 Oxycodone [From Percocet] AdvReac CONSTIPATIO Verified 08/20/17 13:07 N Penicillins AdvReac Rash Verified 08/20/17 13:07 Procaine AdvReac Dizziness Verified 08/20/17 13:07 propoxyphene AdvReac CONSTIPATIO Verified 08/20/17 13:07 [From Darvocet-N] N Sulfa (Sulfonamide AdvReac Hives Verified 08/20/17 13:07 Antibiotics) theophylline [From Emiliano-Dur] AdvReac Difficulty Verified 08/20/17 13:07 Breathing tramadol AdvReac Rash Verified 08/20/17 13:07 Date of admission: 10/31/17 14:14 Primary care physician: Mary Ortiz CNP Consults: 10/31/17 14:17 Consult to Orthopedic Surgery [CONS] Stat Consulting Provider: Abraham Mix Reason for Consult: fracture of right hip; previous replacement Call Completed: Yes 10/31/17 16:12 Consult to Physical Therapy [CONS] Routine Comment: Evaluate, develop and implement POC Reason for Consult: Possible need for rehab. Does patient have active BEDREST order?: No Is patient medically & hemodynamically stable?: Yes 10/31/17 16:13 Consult to Occupational Therapy [CONS] Routine Comment: Evaluate, develop and implement POC Reason for Consult: Evaluation Does patient have active BEDREST order?: No Is patient medically & hemodynamically stable?: Yes 10/31/17 16:14 Consult to Wound Care [CONS] Routine Reason for Consult: LLE Venous Ulcer Call Completed: No 10/31/17 16:15 Consult to Etl Developer [CONS] Routine Reason for SW Consult: Discharge planning Discharging clinician: Kristine Navarro Anticipated date of discharge: 11/01/17 - Constitutional Vitals: Temp Pulse Resp BP Pulse Ox 97.4 F L 80 18 125/76 97 11/01/17 10:49 11/01/17 10:49 11/01/17 10:49 11/01/17 10:49 11/01/17 10:49 General appearance: Present: A&O X 3, morbidly obese, no acute distress - Head Head exam: Present: atraumatic, normocephalic - Eye Eye exam: Present: PERRL, conjuntiva pink, sclera anicteric Pupils: Present: PERRL - Neck Neck exam general surgery: Present: supple, trachea midline. Absent: lymphadenopathy - Respiratory Respiratory exam: Present: CTAB. Absent: accessory muscle use, rales, rhonchi, wheezes - Cardiovascular Cardiovascular exam: Present: RRR, +S1, +S2. Absent: diastolic murmur, gallop, rubs, systolic murmur - GI/Abdominal GI/Abdominal exam: Present: normal bowel sounds, soft, no peritoneal signs. Absent: distended, tenderness - Extremities Exam Extremities exam: Present: tenderness (right hip tenderness ), warm, radial pulses palpable and symmetrical. Absent: calf tenderness, cyanotic, pedal edema - Neurological Exam Neurological exam: Present: CN II-XII intact, oriented X3, no focal deficits. Absent: pronater drift, facial droop, speech deficit - Skin Skin exam: Present: dry, intact - Patient Status Disposition: Home, Self-Care Condition: Good Functional capacity at discharge: uses cane/walker Overall status at discharge: patient is not back to baseline - Discharge Instructions Instructions: Hip Fracture (GEN), Fall Prevention (DC), Fall Prevention for Older Adults (GEN) Follow Up With: Mary Ortiz MITIGATION SUPERVISOR [Primary Care Provider] - Ludmila Osei PAC [Physician Pipe Straightener] - 11/12/17 10:30 am - Diet and Activity Activity: ambulate only with your walker, as per physical therapy Diet: advance to your usual diet (-)
[2017-11-01] MEDS ORDERED: Miconazole 2% ointment 114 GM TUBE TP SCH (13:15)
--- NOTE | 2017-11-01 13:37 | Physician Discharge Referral ---
Home Health/Hosp Referral Info Transfer to: Home Health Attending Provider: Kristine Navarro CNP Provider in Charge Post Discharge: PCP - Diagnosis (1) Closed right hip fracture Status: Acute - Respiratory Orders None Smoking Cessation: Smoking cessation has been advised. For more information, call the [place] Tobacco Quit Line at 1-205-AXZA-NOW. - Diet/Nutrition Diet/Nutrition Orders: Cardiac - Activity Activity Orders: Ambulate, Walker - Services Needed Following services are medically necessary services: Nursing, Home Health Aide, Physical Therapy, Occupational Therapy - Transfer Medications Prescriptions: OxyCODONE Immed Rel [Roxicodone 5 MG] 5 mg PO Q6HR PRN 7 Days #28 tablet PRN Reason: Pain Home Medications: Ascorbic Acid [Vitamin C] 500 mg PO DAILY 01/26/15 [History] Docusate [Colace] 200 mg PO BID 01/26/15 [History] Folic Acid 0.8 mg PO DAILY 01/26/15 [History] Vitamin B Complex [B Complex] 1 tab PO DAILY 01/26/15 [History] Vitamin D3/Folic Acid [Ortho D 3,775 Unit-1 mg Cap] 1 tab PO HS 01/26/15 [ History] Vitamin E (Dl,Tocopheryl Acet) [Vitamin E] 100 unit PO HS 01/26/15 [History] Calcium Carbonate [Calcium] 600 mg PO DAILY 10/18/15 [History] Duloxetine HCl [Cymbalta] 60 mg PO BID 10/18/15 [History] Pantoprazole Sodium [Protonix] 40 mg PO DAILY 10/18/15 [History] Metoprolol [Lopressor] 25 mg PO BID 11/05/16 [History] Nystatin POWDER [Nystop] 1 appl TP BID PRN 11/05/16 [History] hydrOXYzine HCl [Hydroxyzine HCl] 25 mg PO TID PRN 11/05/16 [History] Aspirin [Lo-Dose Aspirin EC] 81 mg PO DAILY 12/12/16 [History] Multivitamin [One Daily Multivitamin] 1 each PO DAILY 12/12/16 [History] Zinc Amino Acid Chelate [Zinc Chelated] 50 mg PO DAILY 12/12/16 [History] Sennosides/Docusate Sodium [Senna Plus] 1 each PO BID 01/04/17 [History] Warfarin [Coumadin] 7.5 mg PO DAILY 01/04/17 [History] OxyCODONE Immed Rel [Roxicodone 5 MG] 5 mg PO Q6HR PRN 7 Days #28 tablet [Rx] Allergies/Adverse Reactions: 3 Allergy/AdvReac Type Severity Reaction Status Date / Time acetaminophen AdvReac CONSTIPATIO Verified 08/20/17 13:07 [From Darvocet-N] N caffeine AdvReac Shakiness Verified 08/20/17 13:07 cefazolin [From Ancef] AdvReac Difficulty Verified 08/20/17 13:07 Breathing codeine AdvReac Rash Verified 08/20/17 13:07 Erythromycin Base AdvReac Rash Verified 08/20/17 13:07 Hydromorphone [From Dilaudid] AdvReac Itching Verified 08/20/17 13:07 lactose AdvReac Abdominal Verified 08/20/17 13:07 Pain latex AdvReac Rash Verified 08/20/17 13:07 Oxycodone [From Percocet] AdvReac CONSTIPATIO Verified 08/20/17 13:07 N Penicillins AdvReac Rash Verified 08/20/17 13:07 Procaine AdvReac Dizziness Verified 08/20/17 13:07 propoxyphene AdvReac CONSTIPATIO Verified 08/20/17 13:07 [From Darvocet-N] N Sulfa (Sulfonamide AdvReac Hives Verified 08/20/17 13:07 Antibiotics) theophylline [From Emiliano-Dur] AdvReac Difficulty Verified 08/20/17 13:07 Breathing tramadol AdvReac Rash Verified 08/20/17 13:07 Certification: Further, I certify that my clinical findings support that this patient is homebound (i.e. absences from home require considerable and taxing effort and are for medical reasons or scientologist services or infrequently or short duration when for other reasons) because: Homebound Reason: Leaving home requires considerable and taxing effort due to condition Attestation: My signature below is to certify that this patient is under my care and that I, or nurse practitioner, or a physician's learning support assistant working with me, has a face-to -face encounter with this patient.
[2017-11-01] MEDS ORDERED: *HR* Warfarin 5 MG TABLET PO ONE (18:00)
[2017-11-01] MEDS ORDERED: Warfarin perPT PO PRN (18:00)
== END 2017-11-01 15:58 | disposition home or self-care (01) ==
LOC: EMEROO 12:18 → INTOOBSV 14:14 → 3NENU 14:14
PROVIDERS: ADMIT Hospitalist; ATTEND Hospitalist

== ENCOUNTER 2019-05-07 13:28 | Observation (INO) ==
[2019-05-07] MEDS ORDERED: Clindamycin 900 MG/50 ML 900 MG/50 ML IV.SOLN IVPB ONE (14:07)
[2019-05-07] MEDS ORDERED: Albuterol 2.5 MG/3 ML NEBULIZER IH PRN (14:07)
[2019-05-07] MEDS ORDERED: Total Joint Mixture (50 ml) IR ONE (14:25)
[2019-05-07] MEDS ORDERED: Famotidine 20 MG/2 ML VIAL IVP ONE (15:00)
[2019-05-07] MEDS: Ringers Solution, Lactated 1,000 ML IVC SCH ×2 (15:29→19:31)
[2019-05-07] MEDS ORDERED: *HR* Midazolam HCl 2 MG/2 ML VIAL ONE (16:35)
[2019-05-07] MEDS ORDERED: Ethanol\\Acetic Acid\\Na Ace\\Ben 1,000 ML IRRIG.SOLN IR ONE (16:35)
[2019-05-07] MEDS ORDERED: *HR* FentaNYL (PF) 100 MCG/2 ML VIAL ONE ×3 (16:35→18:23)
[2019-05-07] MEDS ORDERED: *HR* Propofol 200 MG/20 ML VIAL IVP ONE (16:35)
[2019-05-07] MEDS ORDERED: Lidocaine -MPF 2% 2 ML VIAL ONE (16:36)
[2019-05-07] MEDS ORDERED: Ondansetron 4 MG/2 ML VIAL ONE (16:36)
[2019-05-07] MEDS ORDERED: Dexamethasone 4 MG/ML VIAL ONE (16:36)
[2019-05-07] MEDS ORDERED: Ropivacaine/PF 0.5% 30 ML VIAL ONE (16:55)
[2019-05-07] MEDS ORDERED: *HR* OxyCODONE Immed Rel 5 MG TABLET PO PRN (16:57)
[2019-05-07] MEDS ORDERED: Ondansetron 4 MG/2 ML VIAL IVP ONE (16:57)
[2019-05-07] MEDS ORDERED: *HR* PHENYLEPHRINE 1,000 MCG/10 ML SYRINGE IVP ONE (18:12)
[2019-05-07] MEDS ORDERED: *HR* HYDROcodone/Acet 5/325 mg TABLET PO ONE (19:26)
[2019-05-07] MEDS: *HR* HYDROmorphone (PF) 1 MG/ML SYRINGE IVP PRN ×2 (19:45→19:52)
[2019-05-07 19:50] LABS: Hematocrit 36.7 % (35.3-44.9); Hemoglobin 12.1 g/dL (11.5-15.4)
[2019-05-07] MEDS ORDERED: Naloxone 0.4 MG/ML INJ IVP PRN (20:41)
[2019-05-07] MEDS ORDERED: Sennosides 8.6 MG TABLET PO PRN (20:41)
[2019-05-07] MEDS ORDERED: MOM Conc 10 ML UD.LIQ PO PRN (20:41)
[2019-05-07] MEDS ORDERED: Ondansetron 4 MG/2 ML VIAL IVP PRN (20:41)
[2019-05-07] MEDS ORDERED: Ringers Solution, Lactated 1,000 ML IVC SCH (20:41)
[2019-05-07] MEDS ORDERED: HYDROcodone BIT/Homatropine 5 MG TABLET PO PRN (20:41)
[2019-05-07] MEDS: Ascorbic Acid 500 MG TABLET PO SCH (22:34)
[2019-05-07] MEDS: Gabapentin 300 MG CAPSULE PO SCH (22:34)
[2019-05-08] MEDS: *HR* Warfarin 5 MG TABLET PO SCH ×2 (00:08→17:34)
[2019-05-08] MEDS: Clindamycin 900 MG/50 ML 900 MG/50 ML IV.SOLN IVPB SCH ×2 (00:10→08:03)
[2019-05-08 03:22] LABS: Basophils % 0.2 %; Hemoglobin 11.3 g/dL (11.5-15.4); Immature Granulocytes % 0.5 % (0-4); Lymphocytes # 0.4 K/mcL (0.6-4.6); Lymphocytes % 6.6 %; Mean Corpuscular HGB Conc 34.2 g/dL (31.6-35.5); Mean Corpuscular Hemoglobin 33.7 pg (28.0-33.3); Mean Corpuscular Volume 98.5 fL (83.0-100.0); Mean Platelet Volume 9.3 fL (9.4-12.4); Monocytes # 0.3 K/mcL (0.0-1.3); Monocytes % 5.1 %; Neutrophils # 5.3 K/mcL (1.6-8.9); Platelet Count 186 K/mcL (140-400); Red Blood Count 3.35 M/mcL (3.82-4.97); Red Cell Distribution Width 13.1 % (11.5-14.5); Segmented Neutrophils % 87.6 %; White Blood Count 6.1 K/mcL (4.3-11.1)
[2019-05-08 03:28] LABS: Prothrombin Time 11.1 Seconds (9.4-12.1)
[2019-05-08 03:41] LABS: BUN/Creatinine Ratio 18 (6-26); Blood Urea Nitrogen 14 mg/dL (8-23); Calcium 8.2 mg/dL (8.6-10.3); Carbon Dioxide 28 mEq/L (23-29); Chloride 104 mEq/L (98-107); Glucose 167 mg/dL (70-105); Osmolality,Calculated 286 (280-300); Potassium 4.3 mEq/L (3.5-5.1); Sodium 136 mEq/L (136-145); eGFR For African Americans > 60 (> 60); eGFR For Non-African Americans > 60 (> 60)
[2019-05-08] MEDS: *HR* HYDROcodone/Acet 10/325 mg TABLET PO PRN ×3 (03:59→20:08)
[2019-05-08] MEDS: Aspirin Enteric Coated 81 MG Tablet PO SCH (08:01)
[2019-05-08] MEDS: Gabapentin 300 MG CAPSULE PO SCH ×2 (08:02→20:08)
[2019-05-08] MEDS: Zinc Sulfate 220 MG CAPSULE PO SCH (08:02)
[2019-05-08] MEDS: Cholecalciferol (D-3) 1,000 UNIT (25MCG) TABLET PO SCH (08:02)
[2019-05-08] MEDS: Vitamin B Complex/Vit C/Vit E 1 EACH TABLET PO SCH (08:02)
[2019-05-08] MEDS: Multivit/Ca/Min/Fe/FA 1 TAB TABLET PO SCH (08:02)
[2019-05-08] MEDS: Folic Acid 1 MG TABLET PO SCH (08:02)
[2019-05-08] MEDS: Ascorbic Acid 500 MG TABLET PO SCH ×2 (08:02→17:34)
[2019-05-08] MEDS: Vitamin E 200 UNIT (90MG) CAPSULE PO SCH (08:03)
[2019-05-08] MEDS: *HR* Enoxaparin 40 MG/0.4 ML SYRINGE SQ SCH (08:03)
[2019-05-08] MEDS ORDERED: NON-FORMULARY MEDICATION 1 EACH EACH (Ascorbate Calcium [Vitamin C] 500 MG) PO SCH (09:00)
[2019-05-08] MEDS ORDERED: Aspirin Enteric Coated 81 MG Tablet PO SCH (09:00)
[2019-05-08] MEDS ORDERED: *HR* OxyCODONE Immed Rel 5 MG TABLET PO PRN (16:23)
[2019-05-08] MEDS: *HR* LORazepam 0.5 MG TABLET PO PRN (20:09)
[2019-05-08] MEDS: *HR* Promethazine 25 MG/ML VIAL IVP PRN (20:09)
[2019-05-09] MEDS: *HR* HYDROcodone/Acet 10/325 mg TABLET PO PRN ×3 (05:04→22:58)
[2019-05-09 05:31] LABS: Basophils % 0.4 %; Eosinophils # 0.1 K/mcL (0.0-0.6); Eosinophils % 2.6 %; Hematocrit 28.8 % (35.3-44.9); Immature Granulocytes % 0.6 % (0-4); Lymphocytes # 0.8 K/mcL (0.6-4.6); Lymphocytes % 15.8 %; Mean Corpuscular HGB Conc 33.7 g/dL (31.6-35.5); Mean Corpuscular Hemoglobin 33.2 pg (28.0-33.3); Mean Corpuscular Volume 98.6 fL (83.0-100.0); Mean Platelet Volume 9.8 fL (9.4-12.4); Monocytes # 0.6 K/mcL (0.0-1.3); Monocytes % 11.1 %; Neutrophils # 3.4 K/mcL (1.6-8.9); Platelet Count 158 K/mcL (140-400); Red Blood Count 2.92 M/mcL (3.82-4.97); Red Cell Distribution Width 13.4 % (11.5-14.5); Segmented Neutrophils % 69.5 %
[2019-05-09 05:33] LABS: Hemoglobin 9.7 g/dL (11.5-15.4)
[2019-05-09 05:52] LABS: BUN/Creatinine Ratio 22 (6-26); Blood Urea Nitrogen 15 mg/dL (8-23); Carbon Dioxide 28 mEq/L (23-29); Chloride 103 mEq/L (98-107); Glucose 109 mg/dL (70-105); Osmolality,Calculated 287 (280-300); Potassium 3.9 mEq/L (3.5-5.1); Sodium 138 mEq/L (136-145); eGFR For African Americans > 60 (> 60); eGFR For Non-African Americans > 60 (> 60)
[2019-05-09] MEDS: Ascorbic Acid 500 MG TABLET PO SCH ×2 (08:52→17:10)
[2019-05-09] MEDS: Vitamin E 200 UNIT (90MG) CAPSULE PO SCH (08:52)
[2019-05-09] MEDS: Aspirin Enteric Coated 81 MG Tablet PO SCH (08:52)
[2019-05-09] MEDS: Gabapentin 300 MG CAPSULE PO SCH ×2 (08:52→21:21)
[2019-05-09] MEDS: Zinc Sulfate 220 MG CAPSULE PO SCH (08:52)
[2019-05-09] MEDS: Folic Acid 1 MG TABLET PO SCH (08:52)
[2019-05-09] MEDS: Multivit/Ca/Min/Fe/FA 1 TAB TABLET PO SCH (08:53)
[2019-05-09] MEDS: Cholecalciferol (D-3) 1,000 UNIT (25MCG) TABLET PO SCH (08:53)
[2019-05-09] MEDS: *HR* Enoxaparin 40 MG/0.4 ML SYRINGE SQ SCH (08:53)
[2019-05-09] MEDS: Vitamin B Complex/Vit C/Vit E 1 EACH TABLET PO SCH (08:53)
[2019-05-09] MEDS: *HR* Warfarin 5 MG TABLET PO SCH (17:10)
[2019-05-10] MEDS: *HR* Enoxaparin 40 MG/0.4 ML SYRINGE SQ SCH (09:13)
[2019-05-10] MEDS: Gabapentin 300 MG CAPSULE PO SCH (10:43)
[2019-05-10] MEDS: *HR* HYDROcodone/Acet 10/325 mg TABLET PO PRN ×2 (10:43→15:03)
[2019-05-10] MEDS: Vitamin B Complex/Vit C/Vit E 1 EACH TABLET PO SCH (10:44)
[2019-05-10] MEDS: Zinc Sulfate 220 MG CAPSULE PO SCH (10:44)
[2019-05-10] MEDS: Folic Acid 1 MG TABLET PO SCH (10:44)
[2019-05-10] MEDS: Vitamin E 200 UNIT (90MG) CAPSULE PO SCH (10:44)
[2019-05-10] MEDS: Multivit/Ca/Min/Fe/FA 1 TAB TABLET PO SCH (10:44)
[2019-05-10] MEDS: Cholecalciferol (D-3) 1,000 UNIT (25MCG) TABLET PO SCH (10:44)
[2019-05-10] MEDS: Ascorbic Acid 500 MG TABLET PO SCH (10:44)
[2019-05-10] MEDS: Aspirin Enteric Coated 81 MG Tablet PO SCH (10:44)
[2019-05-10] MEDS: *HR* Promethazine 25 MG/ML VIAL IVP PRN (10:47)
[2019-05-10] MEDS: *HR* LORazepam 0.5 MG TABLET PO PRN (15:00)
[2019-05-10 15:43] VITALS: BP 128/72
== END 2019-05-10 18:00 ==
LOC: SAMDAY 13:28 → 3NENU 13:28
PROVIDERS: ADMIT Orthopaedic Surgery; ATTEND Orthopaedic Surgery